=== PATIENT | female | born 1960 | race Caucasian/White ===

== ENCOUNTER → 2023-09-01 08:26 | Outpatient (CLI) | payer MEDICARE, BC, SELFPAY ==
[2023-09-01 09:29] LABS: Add Manual Diff / Slide Review NO; Basophils Absolute Auto 0 /uL (0-100); Basophils Percent Auto 0.5 % (0-2); Eosinophils Absolute Auto 100 /uL (0-450); Eosinophils Percent Auto 1.8 % (2-4); Hematocrit 41.2 % (36-46); Lymphocytes Absolute Auto 1400 /uL (1100-4500); Lymphocytes Percent Auto 29.6 % (25-40); Mean Corpuscular HGB Conc 34.1 % (30-36); Mean Corpuscular Hemoglobin 30.5 PG (26-34); Mean Corpuscular Volume 89.7 fL (80-100); Monocytes Absolute Auto 300 /uL (0-900); Monocytes Percent Auto 6.5 % (3-14); Neutrophils Absolute Auto 2800 /uL (1500-7000); Neutrophils Percent Auto 61.6 % (50-75); Platelet Count 184 X10^3/uL (150-400); White Blood Cell Count 4.6 X10^3/uL (4.5-11.0)
[2023-09-01 09:54] LABS: Creatinine Urine Random 154.4 mg/dL
[2023-09-01 09:57] LABS: Microalbumi Creatinin Ratio Ur 14.2 ug/mg CR (<30); Microalbumin Urine Random 2.2 mg/dL (0-1.6)
[2023-09-01 09:58] LABS: Alanine Aminotransferase 26 IU/L (<35); Albumin 3.8 g/dL (3.5-5.0); Albumin Globulin Ratio 1.4 (1.0-2.8); Alkaline Phosphatase 114 U/L (38-126); Aspartate Aminotransferase 33 IU/L (14-36); BUN Creatinine Ratio 18.3 (6-22); Bilirubin Total 0.7 mg/dL (0.2-1.3); Blood Urea Nitrogen 13 mg/dL (7-17); Calcium 9.5 mg/dL (8.4-10.2); Carbon Dioxide 29 mmol/L (22-32); Chloride 108 mmol/L (98-107); Cholesterol 110 mg/dL (140-199); Estimated Glomerular Filt Rate > 60 mL/min (>60); Globulin 2.8 g/dL (1.7-4.1); Glucose 93 mg/dL (80-110); HDL Cholesterol 57 mg/dL (40-60); HEMOLYSIS < 15 (0-50); LDL Cholesterol Calculated 38 mg/dL (<100); Potassium 4.1 mmol/L (3.4-5.1); Sodium 139 mmol/L (137-145); Total Protein 6.6 g/dL (6.3-8.2); Triglycerides 76 mg/dL (35-150)
[2023-09-01 10:05] LABS: HEMOLYSIS < 15 (0-50); Iron 104 ug/dL (37-170)
[2023-09-01 10:06] LABS: Hemoglobin A1C% w Est Avg Glu 6.5 % (4.0-6.0)
[2023-09-01 10:08] LABS: Vitamin D 25 Hydroxy (D3) 89.6 ng/mL (30.0-100.0)
[2023-09-01 10:20] LABS: Percent Iron Saturation 36 % (15-50); Total Iron Binding Capacity 289 ug/dL (265-497); Transferrin 222 mg/dL (206-381)
[2023-09-01 10:38] LABS: TSH w/ Reflex to FT4 1.82 uIU/mL (0.47-4.68)
== END ==
PROVIDERS: PCP Family Medicine; Referring Provider Family Medicine; Visit Provider Family Medicine
DX: E78.5 Hyperlipidemia, unspecified (principal); E11.9 Type 2 diabetes mellitus without complications; E55.9 Vitamin D deficiency, unspecified; Z98.84 Bariatric surgery status; I87.2 Venous insufficiency (chronic) (peripheral); N64.4 Mastodynia; R53.83 Other fatigue
CPT/HCPCS: 36415; 80053; 80061; 82043; 82306; 82570; 83036; 83540; 83550; 84443; 85025

== ENCOUNTER → 2023-09-09 | Outpatient (CLI) | payer MEDICARE, BC, SELFPAY ==
--- NOTE | 2023-09-09 | DI.MG.S_ITS ---
UNILATERAL LEFT DIGITAL DIAGNOSTIC MAMMOGRAM 3D/2D WITH AUGMENTATION: 09/09/2023 CLINICAL: Diffuse left lateral breast pain. Comparison is made to exams dated: 03/12/2023 mammogram, 02/13/2019 mammogram, 01/01/2017 mammogram - Outside facility, and 03/28/2021 mammogram - outside location. The left breast is heterogeneously dense, which may obscure small masses (category c / 51-75% glandular tissue). No significant masses, calcifications, or other findings are seen in the breast. IMPRESSION: INCOMPLETE: NEEDS ADDITIONAL IMAGING EVALUATION There is no mammographic abnormality seen in the left breast to correspond with the pain, however, targeted ultrasound of the left breast is recommended and will be performed immediately following this exam. Based on the Tyrer Cuzick model (a risk assessment model) the patient's lifetime risk is 7.0% and her 10 year risk is 3.4%. According to the ACR, ACS, and NCCN guidelines, an annual breast MRI exam along with mammogram is recommended if the patient's lifetime risk is 20% or greater. This exam was interpreted at Station ID: [id number]. NOTE: For mammograms, a report in lay terms will be sent to the patient. Approximately 15% of breast malignancies will not be visualized mammographically. In the management of a palpable breast mass, a negative mammogram must not discourage biopsy of a clinically suspicious lesion. Electronically Signed By: Mery Puente M.D. lk/:09/16/2023 13:52:25 ACR BI-RADS Category 0: Incomplete 3340F
== END ==
LOC: MAMMO 10:23
PROVIDERS: PCP Family Medicine; Referring Provider Family Medicine; Visit Provider Family Medicine
DX: R92.2 Inconclusive mammogram (principal); N64.4 Mastodynia; R92.332 Mammographic heterogeneous density, left breast
CPT/HCPCS: 77065; G0279

== ENCOUNTER → 2023-09-16 12:50 | Outpatient (CLI) | payer MEDICARE, BC, SELFPAY ==
--- NOTE | 2023-09-16 12:53 | DI.US.S_ITS ---
LIMITED ULTRASOUND OF LEFT BREAST: 09/16/2023 CLINICAL: Focal left breast pain. No prior exams were available for comparison. Color flow and real-time ultrasound of the left breast 3-6 o'clock region were performed on the areas of interest. Carrillo scale images of the real-time examination were reviewed. There is a benign simple cyst in the left breast at 5 o'clock anterior depth. This simple cyst is anechoic. This correlates as an incidental finding. IMPRESSION: BENIGN There is no sonographic evidence of malignancy. The simple cyst in the left breast is benign. There is no mammographic or sonographic abnormality seen in the left breast to correspond with the pain, however, clinical followup is recommended. Return to annual mammogram screening schedule is recommended. This exam was interpreted at Station ID: [id number]. Electronically Signed By: Mery rico/:09/16/2023 13:56:25 letter sent: Clinical Evaluation Ultrasound BI-RADS: 2 Benign
== END ==
PROVIDERS: PCP Family Medicine; Referring Provider Family Medicine; Visit Provider Family Medicine
DX: N64.4 Mastodynia (principal); N60.02 Solitary cyst of left breast
CPT/HCPCS: 76642

== ENCOUNTER → 2023-12-01 13:28 | Outpatient (CLI) | payer MEDICARE, BC, SELFPAY ==
--- NOTE | 2023-12-01 13:30 | DI.RAD.S_ITS ---
PROCEDURE: XR RIBS LT MIN 3V W CXR1V INDICATIONS: Left chest wall pain TECHNIQUE: 3 views of the ribs were acquired, along with a single view chest. COMPARISON: None. FINDINGS: Surgical changes and devices: Left abdominal surgical clips.. Bones and chest wall: No fractures or dislocations. No suspicious bony lesions. Overlying soft tissues appear unremarkable. Lungs and pleura: No pleural effusions or pneumothorax. Lungs appear clear. Mediastinum: Mediastinal contours appear normal. Heart size is normal. IMPRESSION: No displaced rib fracture or pneumothorax. Dictated by: Mega Bhardwaj M.D. on 12/01/2023 at 16:44 Approved by: Mega Bhardwaj M.D. on 12/01/2023 at 16:45
== END ==
PROVIDERS: PCP Family Medicine; Referring Provider Surgery; Visit Provider Surgery
DX: R07.89 Other chest pain (principal)
CPT/HCPCS: 71101

== ENCOUNTER → 2023-12-11 10:02 | Outpatient (CLI) | payer MEDICARE, BC, SELFPAY ==
--- NOTE | 2023-12-11 10:07 | DI.CT.S_ITS ---
PROCEDURE: CT CHEST WO CON INDICATIONS: left sided chest wall pain TECHNIQUE: Noncontrast 5 mm thick sections acquired from the pulmonary apices to the posterior costophrenic angles. 1 mm lung window, 5 mm thick coronal and sagittal and 7 mm axial MIP reformats were then acquired. For radiation dose reduction, the following was used: automated exposure control, adjustment of mA and/or kV according to patient size. COMPARISON: [facility], CR, XR RIBS LT MIN 3V W CXR1V, 12/01/2023, 13:36. FINDINGS: Image quality: Diagnostic. Respiratory motion in the bilateral lower lung stephenson limits evaluation. Lower Neck: No enlarged lymph nodes. Thyroid: No thyroid nodules which require sonographic follow up, per consensus guidelines. Axillae: No enlarged lymph nodes. Chest Wall: Bilateral breast implants. Bones: No acute or healing fracture, notably of the ribs. No aggressive appearing lytic or blastic osseous lesion. Minimal degenerative changes of the thoracic spine.. Lungs and Pleura: No pneumothorax or pleural effusions. Evaluation of the bilateral lower lobes is limited secondary to motion/atelectasis. Within these limitations, no suspicious pulmonary nodule or consolidation. Heart: Heart size is normal. No pericardial effusion. Thoracic Vessels: The aorta and pulmonary arteries demonstrate normal size. Mediastinum and Merle: No enlarged lymph nodes. Esophagus: No wall thickening. No hiatal hernia. Upper Abdomen: Postsurgical changes of gastric bypass. IMPRESSION: 1. Evaluation of the bilateral lower lobes is limited secondary to respiratory motion/atelectasis. Within these limitations, no suspicious pulmonary nodule or consolidation. 2. No CT findings to explain patient's left-sided chest pain. Specifically, no pneumothorax, pleural effusion or rib fracture. Dictated by: uRth Chaparro M.D. on 12/11/2023 at 19:25 Approved by: Ruth Chaparro M.D. on 12/11/2023 at 19:31
== END ==
PROVIDERS: PCP Family Medicine; Referring Provider Surgery; Visit Provider Surgery
DX: R07.89 Other chest pain (principal)
CPT/HCPCS: 71250

== ENCOUNTER → 2024-02-22 13:51 | Outpatient (CLI) | payer MEDICARE, BC, SELFPAY ==
--- NOTE | 2024-02-22 13:52 | DI.US.S_ITS ---
LIMITED ULTRASOUND OF LEFT BREAST: 02/22/2024 CLINICAL: Pt here for aspiration of simple 1.0 cm cyst. Comparison is made to exams dated: 09/16/2023 ultrasound, 09/09/2023 mammogram - [facility], and 03/12/2023 mammogram - Outside facility. Color flow and real-time ultrasound of the left breast 5 o'clock region were performed. Carrillo scale images of the real-time examination were reviewed. There is a benign 0.4 cm x 0.3 cm x 0.2 cm simple cyst in the left breast at 5 o'clock anterior depth 7 cm from the nipple. This simple cyst is anechoic. This abnormality is decreased in size. IMPRESSION: BENIGN There is no sonographic evidence of malignancy. Cyst aspiration was not preformed. Benign left breast cyst measuring 0.4 cm is decreased in size. A 1 year screening mammogram is recommended. 09/16/2024 This exam was interpreted at Station ID: [id number]. Electronically Signed By: Reyes Wilson M.D. [facility] [place]:02/23/2024 13:03:16 letter sent: Normal Exam Ultrasound BI-RADS: 2 Benign
== END ==
LOC: US 13:52
PROVIDERS: PCP Family Medicine; Referring Provider Surgery; Visit Provider Surgery
DX: N64.4 Mastodynia (principal); N60.02 Solitary cyst of left breast
CPT/HCPCS: 76642

== ENCOUNTER → 2024-02-29 08:12 | Outpatient (CLI) | payer MEDICARE, BC, SELFPAY ==
[2024-03-01 08:11] LABS: Calcium 9.5 mg/dL (8.7-10.3); Parathyroid Hormone, Intact 53 pg/mL (15-65)
== END ==
LOC: LAB 08:13
PROVIDERS: PCP Family Medicine; Referring Provider Family Medicine; Visit Provider Family Medicine
DX: E11.9 Type 2 diabetes mellitus without complications (principal); R53.83 Other fatigue; E21.3 Hyperparathyroidism, unspecified
CPT/HCPCS: 36415; 82310; 83036; 83970

== ENCOUNTER → 2024-03-26 12:39 | Outpatient (CLI) | payer MEDICARE, BC, SELFPAY ==
--- NOTE | 2024-03-26 12:42 | DI.RAD.S_ITS ---
PROCEDURE: XR THORACIC SPINE 3V INDICATIONS: RIB PAIN TECHNIQUE: 3 views of the thoracic spine were acquired. COMPARISON: None. FINDINGS: Bones: No fractures or dislocations. No suspicious bony lesions. 12 pairs of ribs are noted, and appear intact where visualized. Soft tissues: No paravertebral stripe thickening. Surgical clips project over the left upper abdomen. IMPRESSION: Thoracic spine without acute fracture or traumatic malalignment. Dictated by: Yomi Ahumada M.D. on 03/26/2024 at 15:41 Approved by: Yomi Ahumada M.D. on 03/26/2024 at 15:53
== END ==
PROVIDERS: Family Provider Family Medicine; PCP Family Medicine; Referring Provider Physical Medicine & Rehabilitation; Visit Provider Physical Medicine & Rehabilitation
DX: R07.89 Other chest pain (principal); M54.6 Pain in thoracic spine
CPT/HCPCS: 72072

== ENCOUNTER → 2024-04-09 08:16 | Outpatient (CLI) | payer MEDICARE, BC, SELFPAY ==
--- NOTE | 2024-04-09 08:56 | DI.MRI.S_ITS ---
PROCEDURE: MR THORACIC SPINE WO CON INDICATIONS: left T9 thoracic radiculopathy TECHNIQUE: Noncontrast sagittal T1 spine echo and T2 fast spin echo, sagittal STIR, and T2 fast spin echo through the thoracic spine. COMPARISON: [facility], CR, XR THORACIC SPINE 3V, 03/26/2024, 12:46. FINDINGS: Image quality: Excellent. Alignment and Curvature: There is normal bony alignment. Bone Marrow: Marrow is of normal overall signal. No acute vertebral body compression fractures. Increased T1 and T2 signal is present at L2 most consistent with hemangioma. Spinal Cord: Visualized spinal cord is normal in size and signal. Paraspinous Soft Tissues: No paravertebral masses. Miscellaneous: On axial images, central canal appears widely patent at all scanned levels. Minimal disc bulge at T4-5, T5-6, T6-7, L1-2. Mild right foraminal narrowing at T8-9, minimal T9-10. IMPRESSION: Minimal to mild right foraminal narrowing at T8-9, T9-10. Minimal scattered disc bulges. Dictated by: Aletha White M.D. on 04/09/2024 at 14:40 Approved by: Aletha White M.D. on 04/09/2024 at 14:52
== END ==
PROVIDERS: Family Provider Family Medicine; PCP Family Medicine; Referring Provider Physical Medicine & Rehabilitation; Visit Provider Physical Medicine & Rehabilitation
DX: M47.24 Other spondylosis with radiculopathy, thoracic region (principal)
CPT/HCPCS: 72146

== ENCOUNTER → 2024-04-28 09:24 | Outpatient (CLI) | payer MEDICARE, BC, SELFPAY ==
--- NOTE | 2024-04-28 09:26 | DI.MG.S_ITS ---
BILATERAL DIGITAL SCREENING MAMMOGRAM 3D/2D WITH CAD WITH AUGMENTATION: 04/28/2024 CLINICAL: Routine screening. Comparison is made to exams dated: 03/12/2023 mammogram - Outside facility, 03/28/2021 mammogram - outside location, and 02/13/2019 mammogram - Outside facility. The breasts are heterogeneously dense, which may obscure small masses (category c / 51-75% glandular tissue). Current study was also evaluated with a Computer Aided Detection (CAD) system. Bilateral breast implants are present. There are benign calcifications in both breasts. No significant masses, calcifications, or other findings are seen in either breast. There has been no significant interval change. IMPRESSION: BENIGN There is no mammographic evidence of malignancy. A 1 year screening mammogram is recommended. Future imaging is recommended as follows: 09/16/2024 screening mammogram. Based on the Tyrer Cuzick model (a risk assessment model) the patient's lifetime risk is 7.0% and her 10 year risk is 3.4%. According to the ACR, ACS, and NCCN guidelines, an annual breast MRI exam along with mammogram is recommended if the patient's lifetime risk is 20% or greater. This exam was interpreted at Station ID: [id number]. NOTE: For mammograms, a report in lay terms will be sent to the patient. Approximately 15% of breast malignancies will not be visualized mammographically. In the management of a palpable breast mass, a negative mammogram must not discourage biopsy of a clinically suspicious lesion. Electronically Signed By: Oscar yee/ed:04/30/2024 13:29:58 letter sent: Normal Exam ACR BI-RADS Category 2: Benign
== END ==
PROVIDERS: Family Provider Family Medicine; PCP Family Medicine; Referring Provider Family Medicine; Visit Provider Family Medicine
DX: Z12.31 Encounter for screening mammogram for malignant neoplasm of breast (principal); R92.333 Mammographic heterogeneous density, bilateral breasts
CPT/HCPCS: 77063; 77067

== ENCOUNTER → 2024-05-09 09:11 | Outpatient (CLI) | payer MEDICARE, BC, SELFPAY ==
--- NOTE | 2024-05-09 09:21 | DI.CT.S_ITS ---
PROCEDURE: CT SINUS SCREEN WO CON INDICATIONS: CHRONIC PANSINUSITIS / FACIAL PAIN TECHNIQUE: Noncontrast 3.0 mm axial images acquired from the frontal sinuses to the mid-sella, with coronal and sagittal reformats. For radiation dose reduction, the following was used: automated exposure control, adjustment of mA and/or kV according to patient size. COMPARISON: None. FINDINGS: Image quality: Excellent. Maxillary Sinuses: No bony remodeling or destruction. Sinuses are clear. Ethmoid Air Cells: No bony remodeling or destruction. Sinuses are clear. Sphenoid Sinuses: No bony remodeling or destruction. Sinuses are clear. Frontal Sinuses: No bony remodeling or destruction. Sinuses are clear. Ostiomeatal Complexes: The ostiomeatal complexes are patent, yet they are constitutionally narrowed, with bilateral Jewels cells. Miscellaneous: Visualized intra-orbital contents are normal. Bilateral tracey bullosa can be seen. There is minimal leftward nasal septal deviation. Incidental note is made of hyperostosis frontalis. This is not considered to be pathologic in a woman of this age. IMPRESSION: No significant active paranasal sinus disease can be seen. The ostiomeatal complexes are patent, yet they are constitutionally narrowed, with bilateral Jewels cells. Dictated by: Lenny Orozco M.D. on 05/09/2024 at 9:30 Approved by: Lenny Orozco M.D. on 05/09/2024 at 9:31
== END ==
PROVIDERS: Family Provider Family Medicine; PCP Family Medicine; Referring Provider Otolaryngology; Visit Provider Otolaryngology
DX: J32.4 Chronic pansinusitis (principal); R51.9 Headache, unspecified
CPT/HCPCS: 70486

== ENCOUNTER 2024-05-15 11:30 | Outpatient (RCR) | payer MEDICARE, BC, SELFPAY ==
--- NOTE | 2024-03-29 17:10 | PT.OIE ---
Current Diagnoses Pain in thoracic spine (03/29/24) Past Medical History (Last Updated 03/29/24 @ 09:24 by Marical Wallace DO) Allergies (~2022) Bronchiectasis Cataracts, bilateral (~2018) COPD (chronic obstructive pulmonary disease) (~2022) Eczema of scalp GERD (gastroesophageal reflux disease) (~2009) HLD (hyperlipidemia) Insomnia Left-sided chest wall pain Obesity Pneumonia Retinal tear Simple cyst of left breast Sleep apnea Thoracic radiculopathy due to degenerative joint disease of spine Type 2 diabetes mellitus Venous insufficiency Vitamin D deficiency Past Surgical History (Last Reviewed 03/29/24 @ 09:19 by Marcial Wallace DO) Anesthesia History of bariatric surgery History of breast augmentation (~02/2010) History of endoscopy (~02/2010) History of eye surgery (~02/2023) History of hysteroscopy (~03/2003) History of kidney surgery History of vascular surgery (~08/2004) Visit Care Team Role Provider Type Cornelia Welch MD Attending Provider Physician Family Provider Primary Care Provider Referring Provider Specialty: [facility] [employer] OPER[employer] Address: [address] [place] [address] Email: [email or web address] Physical Therapy Initial Evaluation PT-OP-A Visit Information Start: 03/29/24 12:36 Freq: Status: Active Protocol: Document 03/29/24 14:34 LRN (Rec: 03/29/24 17:09 REID [id number]) Out-Patient Physical Therapy Visit Information Visit Information Visit Type Initial Evaluation Visit Start Time 14:34 Visit Stop Time 15:23 Visit Number 1 Evaluation Information Evaluation Date 03/29/24 Precautions Precautions Bariatric, kidney, vascular and breast implant surgery. PT-OP-B Current Condition Start: 03/29/24 12:36 Freq: Status: Active Protocol: Document 03/29/24 14:34 LRN (Rec: 03/29/24 17:09 LRN [id number]) Current Condition History of Current Condition Onset Date 06/25 Current Complaints L sided posterior mid-back radiating around trunk to under bra. History of Current Condition L sided (Thoracic) chest wall pain s/p fall 06/25 when she missed 2 steps coming out of her garage (pt was packing for move to [employer], after retiring), falling on her L side and 2 wks later starting getting pain in posterior T/S that radiated to front under the L breast. Saw Dr. Wallace today and was told she has a pinched nerve and is planning on having an MRI to confirm. Pain is intermittent during the day when being active. States she had PT 3 yrs ago for L LBP with resolution of pain and was told she had a leg that was 1 longer than the other. Prior Treatments and Tests X-ray of thoracic spine: No fractures or dislocations. No suspicious bony lesions. 12 pairs of ribs are noted, and appear intact where visualized . Thoracic radiculopathy involving the left T9 disc. Future Testing and Treatments Planned MRI of the thoracic spine planned. Treatment Goals Patient/Caregiver Goals Pt has posterior thoracic pain that radiates around the front under the L breast implant (piercing pain) with walking, cleaning (wiping/ mopping/vacumming), rated 7-8/ 10. Raising the L arm the pain in the back that radiates is eliminated. Pt goal is to: -learn how to transfer to not create pain. -Extend her painfree time to > 30 minutes after getting up in the morning. -Decrease pain 50% to 3-4/10. Personal Factors Other Personal Factors That May Effect Obesity (BMI 30.7) w/history Therapy/Recovery of bariatric surgery with breast implants; Depression, Sleep apnea, DM type 2, COPD, GERD, bronchiectasis, PT-OP-C Subjective Start: 03/29/24 12:36 Freq: Status: Active Protocol: Document 03/29/24 14:34 LRN (Rec: 03/29/24 17:09 LRN [id number]) Patient Questionnaires Oswestry Low Back Index Oswestry Score 38 Oswestry Impairment 20 to 39% Impaired (Score 20- 39) OP-PT Pain Assessment Pain Assessment Grid Paper Pain Assessment Grid Completed Yes Location Under L breast Pain Location Details Underneath L breast, more laterally Intensity 8 Scale Used Numeric (0 - 10) Description Sharp,Shooting,Stabbing Other Pain Alleviating Factors Lifting L arm Posterior mid back/front chest Pain Location Details T4-6 costovertebral joint Intensity 8 Scale Used Numeric (0 - 10) Description Sharp,Shooting,Stabbing Other Pain Alleviating Factors Lifting L arm PT-OP-J Posture/Palpation/Skin Start: 03/29/24 12:36 Freq: Status: Active Protocol: Document 03/29/24 14:34 LRN (Rec: 03/29/24 17:09 LRN [id number]) Posture Evaluation Position Standing Head/C-Spine Posture Side Bent Right L-Spine Posture Shifted Left Shoulder Posture (L) Elevated Scapula Posture (R) Rotated Up Pelvis Posture Anteriorly Tilted Knee Posture (L) Genu Varus,(R) Genu Varus Ankle/Foot Posture (L) Supinated,(R) Supinated,(L ) Calcaneal Inversion,(R) Calcaneal Inversion Comments Posture Comments Dowagers hump, flat T/S, T6/T7 rib, Palpation Assessment Location T6-7 Palpation Location Midly tender L intercostal T5-6 Palpation Location Tender at L intercostal T4-5 Palpation Location Mildly tender L intercostal T4-6 Palpation Location PA mob Palpation Findings Tenderness L T6 & T7 Costovertebral jt Palpation Details Pain radiating around the L lateral trunk PT-OP-K Range of Motion Start: 03/29/24 12:36 Freq: Status: Active Protocol: Document 03/29/24 14:34 LRN (Rec: 03/29/24 17:09 LRN [id number]) Cervical Spine Range of Motion Cervical Spine Active Degrees Testing Position Sitting Flexion 50 Extension 90 Rotation Left 55 Rotation Right 60 Lateral Flexion Left 18 Lateral Flexion Right 35 ROM Limitations Soft Tissue Tightness Lumbar Spine Range of Motion Lumbar Spine Active Degrees Testing Position Standing Flexion 65 Extension 17 Rotation Left 35 Rotation Right 20 Lateral Flexion Left 15 Lateral Flexion Right 12 ROM Limitations Soft Tissue Tightness PT-OP-M Strength Start: 03/29/24 12:36 Freq: Status: Active Protocol: Document 03/29/24 14:34 LRN (Rec: 03/29/24 17:09 LRN [id number]) Cervical Spine Strength Cervical Spine Manual Muscle Testing Rotation Right 4 Good Lateral Flexion Right (C3) 4 Good Comments Strength is 5/5 except as indicated above. Shoulder Strength Shoulder Manual Muscle Testing Right Flexion 3 Fair Comments Strength is 5/5 except as indicated above. Left Flexion 3 Fair Comments Strength is 5/5 except as indicated above PT-OP-Q Treatments Start: 03/29/24 12:36 Freq: Status: Active Protocol: Document 03/29/24 14:34 LRN (Rec: 03/29/24 17:09 LRN [id number]) Therapeutic Exercises Supine Exercises Child's Pose Reps/Minutes 1' Comments No pain created Wag the Tail Side bilateral Reps/Minutes 2x Comments No pain created Cat/Camel Reps/Minutes 2x Comments No pain created Self-Care/Home Management Treatment Education Other Education Discussed results of evaluation, goals, treatment, and plan of care (POC) with pt , attendance/cx/dns policy; pt agreeable to evaluation, goals, treatment, attendance/ cx/dns policy and POC. Activities Self-Care/Home Management Activities I/S pt in HEP: Trunk flex/ext /R rot/SB AROM stretch. PT-OP-T Assessment and Plan Start: 03/29/24 12:36 Freq: Status: Active Protocol: Document 03/29/24 14:34 LRN (Rec: 03/29/24 17:09 [facility] [id number]) Physical Therapy Assessment Rehab Potential Rehabilitation Potential Good Evaluation Complexity Number of Personal Factors/Comorbidities 3 or More Clinical Presentation at Evaluation Evolving Impairments Impairments Activity Tolerance,Functional Activities,Pain,Posture,ROM, Soft Tissue Mobility,Strength, Transfers Goals Three Impairment Pain during the day with all activities, no pain at night. 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 LTG Duration 05/18/24 Two Impairment Thoracic pain rated 7-8/10 Short Term Goal (STG) Decrease pain 50% to 3-4/10 with lessening of pain onset with cleaning activities STG Duration 04/20/24 [facility] Goal (LTG) Decrease pain 75% to 1-2/10 with lessening of pain onset with ADLs. LTG Duration 05/18/24 One Impairment Pt lacks appropriate self care HEP. Short Term Goal (STG) Pt will be educated in log roll transfers, proper body mechanics for ADLs, proper sitting/standing posture. STG Duration 04/20/24 [facility] Goal (LTG) Pt will be independent in an effective self care HEP for shoulder/trunk strengthening and mobility ex's. LTG Duration 05/18/24 Assessment Summary Assessment Pt is a 63 yo female who presents with L trunk pain that orginates in the mid T/S costovertebral joint that radiates around to the front under the L breast implant. The pt's pain starts 30 minutes after getting up in the morning, and is intermittent through her day. She does not have a pain response typical to costovertebral joint dysfunction, but she may have scar tissue that has formed since her fall that may be causing her pain, although only mild provocation to the joint (through trunk mobility ex's) did not elicit the pain; therefore her pain may be of internal nature such as diabetic truncal neuopathy? Her pain appears primarily present with posterior- anterior mob of thoracic spinous processes of T4-T6 and at CV joints of T4-T6. The pt also is finding reliev from her pain with raising of her L arm. The pt will benefit from skilled physical therapy to improve trunk mobility/ strength and ROM, manual therapy for soft tissue & scar tissue mobilization, neuro re -ed and self care ex's for core stabilization, therapeutic activities and exercise and education onto a HEP; modalities to promote tissue mobility and manage pain. Physical Therapy Plan Frequency and Duration Frequency of Treatment 2x/Week Duration of treatment (weeks) 7 Plan of Care Start Date 03/29/24 Plan of Care End Date 05/18/24 Therapeutic Interventions Therapeutic Interventions Home Exercise Program,Joint Mobilizations,Manual Therapy, Neuromuscular Re-education, Self-Care/Home Management,Soft Tissue Mobilization, Therapeutic Activities, Therapeutic Exercises Modalities Electric Stimulation,Hot Packs ,Ultrasound Next Visit Focus/Plan Next Note Type Treatment Note Next Visit Plan Check pelvis/hip posturing ( check leg length descrepancy), shoulder AROM, Apley's Scratch Test, & scar mob under L breast. Assess gross sensation & functional UE mobility. Start with MH while doing T/S mobility ex's ( rotation), and review/issue HEP: flex, SB. POC: ROM, stabilization and strengthening, activity tolerance, manual therapy, JMT , neuro re-education, ther act , ther ex, modalities as needed for pain, pt education.
--- NOTE | 2024-04-05 14:11 | PT.OTN ---
Current Diagnoses Pain in thoracic spine (04/05/24) Physical Therapy Treatment Note PT-OP-A Visit Information Start: 03/29/24 12:36 Freq: Status: Active Protocol: Document 04/05/24 12:59 LRN (Rec: 04/05/24 13:50 LRN [id number]) Out-Patient Physical Therapy Visit Information Visit Information Visit Type Treatment Note Visit Start Time 12:59 Visit Stop Time 13:43 Visit Number 2 Evaluation Information Evaluation Date 03/29/24 Precautions Precautions Bariatric, kidney, vascular and breast implant surgery. PT-OP-B Current Condition Start: 03/29/24 12:36 Freq: Status: Active Protocol: Document 03/29/24 14:34 LRN (Rec: 03/29/24 17:09 LRN [id number]) Current Condition History of Current Condition Onset Date 06/25 Current Complaints L sided posterior mid-back radiating around trunk to under bra. History of Current Condition L sided (Thoracic) chest wall pain s/p fall 06/25 when she missed 2 steps coming out of her garage (pt was packing for move to [place], after retiring), falling on her L side and 2 wks later starting getting pain in posterior T/S that radiated to front under the L breast. Saw Dr. Wallace today and was told she has a pinched nerve and is planning on having an MRI to confirm. Pain is intermittent during the day when being active. States she had PT 3 yrs ago for L LBP with resolution of pain and was told she had a leg that was 1 longer than the other. Prior Treatments and Tests X-ray of thoracic spine: No fractures or dislocations. No suspicious bony lesions. 12 pairs of ribs are noted, and appear intact where visualized . Thoracic radiculopathy involving the left T9 disc. Future Testing and Treatments Planned MRI of the thoracic spine planned. Treatment Goals Patient/Caregiver Goals Pt has posterior thoracic pain that radiates around the front under the L breast implant (piercing pain) with walking, cleaning (wiping/ mopping/vacumming), rated 7-8/ 10. Raising the L arm the pain in the back that radiates is eliminated. Pt goal is to: -learn how to transfer to not create pain. -Extend her painfree time to > 30 minutes after getting up in the morning. -Decrease pain 50% to 3-4/10. Personal Factors Other Personal Factors That May Effect Obesity (BMI 30.7) w/history Therapy/Recovery of bariatric surgery with breast implants; Depression, Sleep apnea, DM type 2, COPD, GERD, bronchiectasis, PT-OP-C Subjective Start: 03/29/24 12:36 Freq: Status: Active Protocol: Document 04/05/24 12:59 LRN (Rec: 04/05/24 13:50 LRN [id number]) OP-PT Subjective Patient Comments Patient Comments Walking uphill back hurts. PT-OP-J Posture/Palpation/Skin Start: 03/29/24 12:36 Freq: Status: Active Protocol: Document 03/29/24 14:34 LRN (Rec: 03/29/24 17:09 LRN [id number]) Posture Evaluation Position Standing Head/C-Spine Posture Side Bent Right L-Spine Posture Shifted Left Shoulder Posture (L) Elevated Scapula Posture (R) Rotated Up Pelvis Posture Anteriorly Tilted Knee Posture (L) Genu Varus,(R) Genu Varus Ankle/Foot Posture (L) Supinated,(R) Supinated,(L ) Calcaneal Inversion,(R) Calcaneal Inversion Comments Posture Comments Dowagers hump, flat T/S, T6/T7 rib, Palpation Assessment Location T6-7 Palpation Location Midly tender L intercostal T5-6 Palpation Location Tender at L intercostal T4-5 Palpation Location Mildly tender L intercostal T4-6 Palpation Location PA mob Palpation Findings Tenderness L T6 & T7 Costovertebral jt Palpation Details Pain radiating around the L lateral trunk PT-OP-K Range of Motion Start: 03/29/24 12:36 Freq: Status: Active Protocol: Document 04/05/24 12:59 LRN (Rec: 04/05/24 13:50 LRN [id number]) Shoulder Goniometric Range of Motion Shoulder Right Active Testing Position Supine Flexion 162 Abduction 170 External Rotation at 90 degrees 95 Abduction Internal Rotation 78 Left Active Testing Position Supine Flexion 175 Abduction 180 External Rotation at 90 degrees 75 Abduction Internal Rotation 73 PT-OP-M Strength Start: 03/29/24 12:36 Freq: Status: Active Protocol: Document 03/29/24 14:34 LRN (Rec: 03/29/24 17:09 LRN [id number]) Cervical Spine Strength Cervical Spine Manual Muscle Testing Rotation Right 4 Good Lateral Flexion Right (C3) 4 Good Comments Strength is 5/5 except as indicated above. Shoulder Strength Shoulder Manual Muscle Testing Right Flexion 3 Fair Comments Strength is 5/5 except as indicated above. Left Flexion 3 Fair Comments Strength is 5/5 except as indicated above PT-OP-Q Treatments Start: 03/29/24 12:36 Freq: Status: Active Protocol: Document 04/05/24 12:59 LRN (Rec: 04/05/24 13:50 LRN [id number]) Therapeutic Exercises Supine Exercises Shoulder stretch ER Side left Reps/Minutes 30 SH x 3 Comments Passive stretch by PT before pt passive stretching Shoulder stretch flex Supine Exercise Name Assisted Shoulder flex stretch Side bilateral Reps/Minutes 4' TA tightening Supine Exercise Name After pelvic correction, TA tightening Reps/Minutes 10 SH (3 breaths) x 8' Comments Cued to pull belly button in. Sitting Exercises Postural awareness trng Sitting Exercise Name Correction to Trunk shift L, and trunk R SB Right, neck shift R. Reps/Minutes 6' Standing Exercises Wall trunk shift correction Standing Exercise Name L shoulder/arm on wall, shifting pelvis to L to wall Reps/Minutes 60 SH x 2 Comments Extra time needed to determine stretch position and joshua position. Manual Therapy Treatment Joint Mobilizations R SIJ Joint R SIJ Direction Correcting outflare Body Position Supine Reps/Duration 11' Comments Corrected outflare Self-Care/Home Management Treatment Activities Self-Care/Home Management Activities Issued & reviewed HEP: Trunk lat shift to L, Neftali shoulder flex, L shoulder ER stretch. PT-OP-T Assessment and Plan Start: 03/29/24 12:36 Freq: Status: Active Protocol: Document 04/05/24 12:59 LRN (Rec: 04/05/24 13:50 LRN [id number]) Physical Therapy Assessment Goals Three Impairment Pain during the day with all activities, no pain at night. Fpc Goal (LTG) Pt will be able to get up and be painfree for the first 1-2 hrs before onset of discomfort and will be able to manage her pain with exercise to keep her pain at a tolerable level . LTG Duration 05/18/24 Two Impairment Thoracic pain rated 7-8/10 Short Term Goal (STG) Decrease pain 50% to 3-4/10 with lessening of pain onset with cleaning activities STG Duration 04/20/24 Fpc Goal (LTG) Decrease pain 75% to 1-2/10 with lessening of pain onset with ADLs. LTG Duration 05/18/24 One Impairment Pt lacks appropriate self care HEP. Short Term Goal (STG) Pt will be educated in log roll transfers, proper body mechanics for ADLs, proper sitting/standing posture. STG Duration 04/20/24 Fpc Goal (LTG) Pt will be independent in an effective self care HEP for shoulder/trunk strengthening and mobility ex's. 04/05/24: HEP: Trunk lat shift to L, Neftali shoulder flex, L shoulder ER stretch. LTG Duration 05/18/24 progressed 04/05/24 Assessment Summary Assessment 63 yo female with L trunk pain that orginates in the mid T/S costovertebral joint (CVJ) that radiates around to the front under the L breast implant. She has pain typical of CVJ dysfunction, scar tissue may also be a hinderance; pain may also be of internal nature such as diabetic truncal neuopathy?. Pain is w/PA mob of T/S processes T4-T6 and CV joints of T4-T6. Today, pt demonstrates equal leg lengths but in standing her L hip is low. She was able to perform todays ex's w/o c/o pain, but not able to on her own correct her postural dysfunctions (L trunk shift, trunk & head tilt R). Pt not able to recall HEP. Physical Therapy Plan Frequency and Duration Frequency of Treatment 2x/Week Duration of treatment (weeks) 7 Plan of Care Start Date 03/29/24 Plan of Care End Date 05/18/24 Next Visit Focus/Plan Next Note Type Treatment Note Next Visit Plan Assess gross sensation & functional UE mobility. Review/issue initial HEP (HEP: trunk flex, neck SB.) instructed and issue handouts for exercise. Check Apley's Scratch Test, & scar mob under L breast. Can start with MH while doing T/S mobility ex's (rotation). Review proper sitting sitting weird Manual: Scar mob at L breast scar. Educated in log roll transfers , proper body mechanics for ADLs, standing posture. POC: ROM, stabilization and strengthening, activity tolerance, manual therapy, JMT , neuro re-education, ther act , ther ex, modalities as needed for pain, pt education.
--- NOTE | 2024-04-12 15:58 | PT.OTN ---
Current Diagnoses Pain in thoracic spine (04/12/24) Physical Therapy Treatment Note PT-OP-A Visit Information Start: 03/29/24 12:36 Freq: Status: Active Protocol: Document 04/12/24 13:01 LRN (Rec: 04/12/24 13:50 LRN [id number]) Out-Patient Physical Therapy Visit Information Visit Information Visit Type Treatment Note Visit Start Time 13:02 Visit Stop Time 13:47 Visit Number 3 Evaluation Information Evaluation Date 03/29/24 Precautions Precautions Bariatric, kidney, vascular and breast implant surgery, diabetes type II, bilateral venous insufficiecy - 2002. PT-OP-B Current Condition Start: 03/29/24 12:36 Freq: Status: Active Protocol: Document 03/29/24 14:34 LRN (Rec: 03/29/24 17:09 LRN [id number]) Current Condition History of Current Condition Onset Date 06/25 Current Complaints L sided posterior mid-back radiating around trunk to under bra. History of Current Condition L sided (Thoracic) chest wall pain s/p fall 06/25 when she missed 2 steps coming out of her garage (pt was packing for move to [place], after retiring), falling on her L side and 2 wks later starting getting pain in posterior T/S that radiated to front under the L breast. Saw Dr. Wallace today and was told she has a pinched nerve and is planning on having an MRI to confirm. Pain is intermittent during the day when being active. States she had PT 3 yrs ago for L LBP with resolution of pain and was told she had a leg that was 1 longer than the other. Prior Treatments and Tests X-ray of thoracic spine: No fractures or dislocations. No suspicious bony lesions. 12 pairs of ribs are noted, and appear intact where visualized . Thoracic radiculopathy involving the left T9 disc. Future Testing and Treatments Planned MRI of the thoracic spine planned. Treatment Goals Patient/Caregiver Goals Pt has posterior thoracic pain that radiates around the front under the L breast implant (piercing pain) with walking, cleaning (wiping/ mopping/vacumming), rated 7-8/ 10. Raising the L arm the pain in the back that radiates is eliminated. Pt goal is to: -learn how to transfer to not create pain. -Extend her painfree time to > 30 minutes after getting up in the morning. -Decrease pain 50% to 3-4/10. Personal Factors Other Personal Factors That May Effect Obesity (BMI 30.7) w/history Therapy/Recovery of bariatric surgery with breast implants; Depression, Sleep apnea, DM type 2, COPD, GERD, bronchiectasis, PT-OP-C Subjective Start: 03/29/24 12:36 Freq: Status: Active Protocol: Document 04/12/24 13:01 LRN (Rec: 04/12/24 13:50 LRN [id number]) OP-PT Subjective Patient Comments Patient Comments MRI done 04/09/24. LB comes and goes, taking Gabapentin at night. Pain in upper back still 02/10. PT-OP-J Posture/Palpation/Skin Start: 03/29/24 12:36 Freq: Status: Active Protocol: Document 03/29/24 14:34 LRN (Rec: 03/29/24 17:09 LRN [id number]) Posture Evaluation Position Standing Head/C-Spine Posture Side Bent Right L-Spine Posture Shifted Left Shoulder Posture (L) Elevated Scapula Posture (R) Rotated Up Pelvis Posture Anteriorly Tilted Knee Posture (L) Genu Varus,(R) Genu Varus Ankle/Foot Posture (L) Supinated,(R) Supinated,(L ) Calcaneal Inversion,(R) Calcaneal Inversion Comments Posture Comments Dowagers hump, flat T/S, T6/T7 rib, Palpation Assessment Location T6-7 Palpation Location Midly tender L intercostal T5-6 Palpation Location Tender at L intercostal T4-5 Palpation Location Mildly tender L intercostal T4-6 Palpation Location PA mob Palpation Findings Tenderness L T6 & T7 Costovertebral jt Palpation Details Pain radiating around the L lateral trunk PT-OP-K Range of Motion Start: 03/29/24 12:36 Freq: Status: Active Protocol: Document 04/12/24 13:01 LRN (Rec: 04/12/24 13:50 LRN [id number]) Shoulder Goniometric Range of Motion Shoulder Right Active Testing Position Supine Flexion 170 Abduction 180 External Rotation at 90 degrees 95 Abduction Left Active Testing Position Supine Flexion 165 Abduction 180 External Rotation at 90 degrees 77 Abduction PT-OP-M Strength Start: 03/29/24 12:36 Freq: Status: Active Protocol: Document 03/29/24 14:34 LRN (Rec: 03/29/24 17:09 LRN [id number]) Cervical Spine Strength Cervical Spine Manual Muscle Testing Rotation Right 4 Good Lateral Flexion Right (C3) 4 Good Comments Strength is 5/5 except as indicated above. Shoulder Strength Shoulder Manual Muscle Testing Right Flexion 3 Fair Comments Strength is 5/5 except as indicated above. Left Flexion 3 Fair Comments Strength is 5/5 except as indicated above PT-OP-Q Treatments Start: 03/29/24 12:36 Freq: Status: Active Protocol: Document 04/12/24 13:01 LRN (Rec: 04/12/24 13:50 LRN [id number]) Therapeutic Exercises Supine Exercises Shoulder stretch ER Side left Reps/Minutes 3 breath hold x 10 Comments To start, extra time needed for much v instuctions to perform ex. Shoulder stretch flex Supine Exercise Name Assisted Shoulder flex stretch Side bilateral Equipment Used yellow staff Reps/Minutes 3 breath hold x 10 Comments Extra time needed for much v instuctions to perform ex. Child's Pose Reps/Minutes 3 Breath hold x 5 Comments No pain created Wag the Tail Side bilateral Reps/Minutes 2x Comments No pain created Cat/Camel Reps/Minutes 2x Comments No pain created Sidelying Exercises Open book Side bilateral Reps/Minutes 5x Comments Much trng, phy/v cuing needed to lead w/neck rot, no exces shdr horiz AB Self-Care/Home Management Treatment Activities Self-Care/Home Management Activities Issued & reviewed HEP: R trunk Rot(sit)/SB(stand) stretch, and Open Book. PT-OP-T Assessment and Plan Start: 03/29/24 12:36 Freq: Status: Active Protocol: Document 04/12/24 13:01 LRN (Rec: 04/12/24 13:50 LRN [id number]) Physical Therapy Assessment Goals Three Impairment Pain during the day with all activities, no pain at night. Snf Goal (LTG) Pt will be able to get up and be painfree for the first 1-2 hrs before onset of discomfort and will be able to manage her pain with exercise to keep her pain at a tolerable level . LTG Duration 05/18/24 Two Impairment Thoracic pain rated 7-8/10 Short Term Goal (STG) Decrease pain 50% to 3-4/10 with lessening of pain onset with cleaning activities STG Duration 04/20/24 Snf Goal (LTG) Decrease pain 75% to 1-2/10 with lessening of pain onset with ADLs. LTG Duration 05/18/24 One Impairment Pt lacks appropriate self care HEP. Short Term Goal (STG) Pt will be educated in log roll transfers, proper body mechanics for ADLs, proper sitting/standing posture. STG Duration 04/20/24 Snf Goal (LTG) Pt will be independent in an effective self care HEP for shoulder/trunk strengthening and mobility ex's. 04/05/24: HEP: Trunk lat shift to L, Neftali shoulder flex, L shoulder ER stretch. 04/12/24: HEP: R trunk Rot ( sit) & SB (stand), and Open Book. LTG Duration 05/18/24 progressed 04/12/24 Assessment Summary Assessment 63 yo female with L trunk pain that orginates in the mid T/S costovertebral joint (CVJ), radiating around to the front under the L breast implant. She has pain typical of CVJ dysfunction, scar tissue may also be a hinderance; pain may be of internal nature such as diabetic truncal neuopathy? Pain w/PA mob of T4-T6 spinous processes and T4-T6 CV joints . Today, pt demonstrates improved L shoulder ROM (ER is 77 deg's L, 95 R; flexion is 165 deg's L, 170 deg's R). MRI showed per pt copy of report, min disc bulge between T4-T7 and L1-L2; min>mod foraminal narrowing T8-9, T9- 10. L shoulder tightness with supine AROM. Pt moves slowly through the ex's. Physical Therapy Plan Frequency and Duration Frequency of Treatment 2x/Week Duration of treatment (weeks) 7 Plan of Care Start Date 03/29/24 Plan of Care End Date 05/18/24 Next Visit Focus/Plan Next Note Type Treatment Note Next Visit Plan Issue HEP: trunk flex/ext AROM and 4pt LB stretches. Assess gross sensation & functional UE mobility. Review/issue initial HEP (HEP: trunk flex, neck SB). Check Apley's Scratch Test, & scar mob under L breast. Can start with MH while doing T/S mobility ex's (rotation). Review proper sitting sitting weird Educated in log roll transfers , proper body mechanics for ADLs, standing posture. Manual: Scar mob at L breast scar. POC: ROM, stabilization and strengthening, activity tolerance, manual therapy, JMT , neuro re-education, ther act , ther ex, modalities as needed for pain, pt education.
--- NOTE | 2024-04-19 11:33 | PT.OTN ---
Current Diagnoses Pain in thoracic spine (04/19/24) Physical Therapy Treatment Note PT-OP-A Visit Information Start: 03/29/24 12:36 Freq: Status: Active Protocol: Document 04/19/24 10:47 SP (Rec: 04/19/24 11:36 SP [id number]) Out-Patient Physical Therapy Visit Information Visit Information Visit Type Treatment Note Visit Start Time 10:47 Visit Stop Time 11:33 Visit Number 4 Number of SCOREKEEPER Visits 1 Evaluation Information Evaluation Date 03/29/24 Precautions Precautions Bariatric, kidney, vascular and breast implant surgery, diabetes type II, bilateral venous insufficiecy - 2002. PT-OP-B Current Condition Start: 03/29/24 12:36 Freq: Status: Active Protocol: Document 03/29/24 14:34 LRN (Rec: 03/29/24 17:09 LRN [id number]) Current Condition History of Current Condition Onset Date 06/25 Current Complaints L sided posterior mid-back radiating around trunk to under bra. History of Current Condition L sided (Thoracic) chest wall pain s/p fall 06/25 when she missed 2 steps coming out of her garage (pt was packing for move to [employer], after retiring), falling on her L side and 2 wks later starting getting pain in posterior T/S that radiated to front under the L breast. Saw Dr. Wallace today and was told she has a pinched nerve and is planning on having an MRI to confirm. Pain is intermittent during the day when being active. States she had PT 3 yrs ago for L LBP with resolution of pain and was told she had a leg that was 1 longer than the other. Prior Treatments and Tests X-ray of thoracic spine: No fractures or dislocations. No suspicious bony lesions. 12 pairs of ribs are noted, and appear intact where visualized . Thoracic radiculopathy involving the left T9 disc. Future Testing and Treatments Planned MRI of the thoracic spine planned. Treatment Goals Patient/Caregiver Goals Pt has posterior thoracic pain that radiates around the front under the L breast implant (piercing pain) with walking, cleaning (wiping/ mopping/vacumming), rated 7-8/ 10. Raising the L arm the pain in the back that radiates is eliminated. Pt goal is to: -learn how to transfer to not create pain. -Extend her painfree time to > 30 minutes after getting up in the morning. -Decrease pain 50% to 3-4/10. Personal Factors Other Personal Factors That May Effect Obesity (BMI 30.7) w/history Therapy/Recovery of bariatric surgery with breast implants; Depression, Sleep apnea, DM type 2, COPD, GERD, bronchiectasis, PT-OP-C Subjective Start: 03/29/24 12:36 Freq: Status: Active Protocol: Document 04/19/24 10:47 SP (Rec: 04/19/24 11:36 SP [id number]) OP-PT Subjective Patient Comments Patient Comments Pt reports has had frozen shoulder on L in her past during covid so not active as likes. Still having discomfort under R lateral ribcage. PT-OP-J Posture/Palpation/Skin Start: 03/29/24 12:36 Freq: Status: Active Protocol: Document 03/29/24 14:34 LRN (Rec: 03/29/24 17:09 LRN [id number]) Posture Evaluation Position Standing Head/C-Spine Posture Side Bent Right L-Spine Posture Shifted Left Shoulder Posture (L) Elevated Scapula Posture (R) Rotated Up Pelvis Posture Anteriorly Tilted Knee Posture (L) Genu Varus,(R) Genu Varus Ankle/Foot Posture (L) Supinated,(R) Supinated,(L ) Calcaneal Inversion,(R) Calcaneal Inversion Comments Posture Comments Dowagers hump, flat T/S, T6/T7 rib, Palpation Assessment Location T6-7 Palpation Location Midly tender L intercostal T5-6 Palpation Location Tender at L intercostal T4-5 Palpation Location Mildly tender L intercostal T4-6 Palpation Location PA mob Palpation Findings Tenderness L T6 & T7 Costovertebral jt Palpation Details Pain radiating around the L lateral trunk PT-OP-K Range of Motion Start: 03/29/24 12:36 Freq: Status: Active Protocol: Document 04/12/24 13:01 LRN (Rec: 04/12/24 13:50 LRN [id number]) Shoulder Goniometric Range of Motion Shoulder Right Active Testing Position Supine Flexion 170 Abduction 180 External Rotation at 90 degrees 95 Abduction Left Active Testing Position Supine Flexion 165 Abduction 180 External Rotation at 90 degrees 77 Abduction PT-OP-M Strength Start: 03/29/24 12:36 Freq: Status: Active Protocol: Document 03/29/24 14:34 LRN (Rec: 03/29/24 17:09 LRN [id number]) Cervical Spine Strength Cervical Spine Manual Muscle Testing Rotation Right 4 Good Lateral Flexion Right (C3) 4 Good Comments Strength is 5/5 except as indicated above. Shoulder Strength Shoulder Manual Muscle Testing Right Flexion 3 Fair Comments Strength is 5/5 except as indicated above. Left Flexion 3 Fair Comments Strength is 5/5 except as indicated above PT-OP-Q Treatments Start: 03/29/24 12:36 Freq: Status: Active Protocol: Document 04/19/24 10:47 SP (Rec: 04/19/24 11:36 SP [id number]) Therapeutic Exercises Supine Exercises Child's Pose Supine Exercise Name quadruped Reps/Minutes 3 Breath hold x 5 Comments No pain created, cued arms front Cat/Camel Supine Exercise Name quadruped Reps/Minutes x5 Comments much tacile cues for proper form. Sidelying Exercises L shld ABD Sidelying Exercise Name trialed during HEP Side left Resistance AROM Reps/Minutes 8 reps Comments cues for painfree range, breath last few to support ribcage mobility- impro Open book Side bilateral Resistance AROM Reps/Minutes 8 reps Comments Much trng: VCing delay head turn, VC & tactile segmental mobililty scap/TS Manual Therapy Treatment Consent Patient gave verbal consent for manual Yes treatment Soft Tissue Mobilization L shoulder Body Location L Rhomboid, lat, serratus ant, UT, pec Mobilization Type Rolling,Sustained Pressure, Other Intensity/Depth Moderate Body Position R SL Comments gentle STMs, MWM scapulothoracic open book, shld ABD /c breath end range with reports improvement in lateral ribcage mobility. Joint Mobilizations R scapulothoracic jt Joint PROM & AAROM Direction superior, inferior, protraction, retraction Grade II Body Position R SL Comments gentle scapular mobility then tactile cues with R shld open book & shld ABD painfree range Self-Care/Home Management Treatment Education Patient Education Pain Management,Posture Other Education 8 min: Time spent education on anatomy of scapular complex, ribcage and attachment to sternum and thoracic spine PT-OP-T Assessment and Plan Start: 03/29/24 12:36 Freq: Status: Active Protocol: Document 04/19/24 10:47 SP (Rec: 04/19/24 11:36 SP [id number]) Physical Therapy Assessment Goals Three Impairment Pain during the day with all activities, no pain at night. [employer]p Software Support Goal (LTG) Pt will be able to get up and be painfree for the first 1-2 hrs before onset of discomfort and will be able to manage her pain with exercise to keep her pain at a tolerable level . LTG Duration 05/18/24 Two Impairment Thoracic pain rated 7-8/10 Short Term Goal (STG) Decrease pain 50% to 3-4/10 with lessening of pain onset with cleaning activities STG Duration 04/20/24 Residential Goal (LTG) Decrease pain 75% to 1-2/10 with lessening of pain onset with ADLs. LTG Duration 05/18/24 One Impairment Pt lacks appropriate self care HEP. Short Term Goal (STG) Pt will be educated in log roll transfers, proper body mechanics for ADLs, proper sitting/standing posture. STG Duration 04/20/24 Vp Software Support Goal (LTG) Pt will be independent in an effective self care HEP for shoulder/trunk strengthening and mobility ex's. 04/05/24: HEP: Trunk lat shift to L, Neftali shoulder flex, L shoulder ER stretch. 04/12/24: HEP: R trunk Rot ( sit) & SB (stand), and Open Book. 04/19/24: Trialed in PT L shld ABD, review HABD open book with breath end range for rib and scapular mobility, not added for HEP. LTG Duration 05/18/24 progressed 04/19/24 Assessment Summary Assessment Pt responded well to gentle manual, demonstrated improved scapular segmental mobility with verbal and tactile facilitation support with less tension through ribcage. Verbalized understanding with education provided how mobility and breath helps with tension reduction reported experiences. Pt challenged with motor planning cat/camel TS and LS mobility, tends to wt shift into legs initially and bend elbows. Improved form and TS ext into camel positioning with no pain reports with time and reps. She would benefit from continued education and cuing for mobililty during PT. Physical Therapy Plan Frequency and Duration Frequency of Treatment 2x/Week Duration of treatment (weeks) 7 Plan of Care Start Date 03/29/24 Plan of Care End Date 05/18/24 Therapeutic Interventions Therapeutic Interventions Home Exercise Program,Joint Mobilizations,Manual Therapy, Neuromuscular Re-education, Self-Care/Home Management,Soft Tissue Mobilization, Therapeutic Activities, Therapeutic Exercises Modalities Electric Stimulation,Hot Packs ,Ultrasound Next Visit Focus/Plan Next Note Type Treatment Note Next Visit Plan Continue: cat/camel and LS lateral tilting (tail wag), side openbook/shld ABD during PT with manual breath end range next tx. POC: Issue HEP: trunk flex/ ext AROM quadruped and 4pt LB stretches. Assess gross sensation & functional UE mobility. Review/issue initial HEP (HEP: trunk flex, neck SB). Check Apley's Scratch Test, & scar mob under L breast. Can start with MH while doing T/S mobility ex's (rotation). Review proper sitting sitting weird Educated in log roll transfers , proper body mechanics for ADLs, standing posture. Manual: Scar mob at L breast scar. POC: ROM, stabilization and strengthening, activity tolerance, manual therapy, JMT , neuro re-education, ther act , ther ex, modalities as needed for pain, pt education.
--- NOTE | 2024-04-26 13:50 | PT.OTN ---
Current Diagnoses Pain in thoracic spine (04/26/24) Physical Therapy Treatment Note PT-OP-A Visit Information Start: 03/29/24 12:36 Freq: Status: Active Protocol: Document 04/26/24 13:02 SP (Rec: 04/26/24 13:51 SP [id number]) Out-Patient Physical Therapy Visit Information Visit Information Visit Type Treatment Note Visit Start Time 13:02 Visit Stop Time 13:50 Visit Number 5 (4/10 after eval)/19 visits Number of ROOFING APPRENTICE Visits 2 Evaluation Information Evaluation Date 03/29/24 Precautions Precautions Bariatric, kidney, vascular and breast implant surgery, diabetes type II, bilateral venous insufficiecy - 2002. PT-OP-B Current Condition Start: 03/29/24 12:36 Freq: Status: Active Protocol: Document 03/29/24 14:34 LRN (Rec: 03/29/24 17:09 LRN [id number]) Current Condition History of Current Condition Onset Date 06/25 Current Complaints L sided posterior mid-back radiating around trunk to under bra. History of Current Condition L sided (Thoracic) chest wall pain s/p fall 06/25 when she missed 2 steps coming out of her garage (pt was packing for move to [employer], after retiring), falling on her L side and 2 wks later starting getting pain in posterior T/S that radiated to front under the L breast. Saw Dr. Wallace today and was told she has a pinched nerve and is planning on having an MRI to confirm. Pain is intermittent during the day when being active. States she had PT 3 yrs ago for L LBP with resolution of pain and was told she had a leg that was 1 longer than the other. Prior Treatments and Tests X-ray of thoracic spine: No fractures or dislocations. No suspicious bony lesions. 12 pairs of ribs are noted, and appear intact where visualized . Thoracic radiculopathy involving the left T9 disc. Future Testing and Treatments Planned MRI of the thoracic spine planned. Treatment Goals Patient/Caregiver Goals Pt has posterior thoracic pain that radiates around the front under the L breast implant (piercing pain) with walking, cleaning (wiping/ mopping/vacumming), rated 7-8/ 10. Raising the L arm the pain in the back that radiates is eliminated. Pt goal is to: -learn how to transfer to not create pain. -Extend her painfree time to > 30 minutes after getting up in the morning. -Decrease pain 50% to 3-4/10. Personal Factors Other Personal Factors That May Effect Obesity (BMI 30.7) w/history Therapy/Recovery of bariatric surgery with breast implants; Depression, Sleep apnea, DM type 2, COPD, GERD, bronchiectasis, PT-OP-C Subjective Start: 03/29/24 12:36 Freq: Status: Active Protocol: Document 04/26/24 13:02 SP (Rec: 04/26/24 13:51 SP [id number]) OP-PT Subjective Patient Comments Patient Comments Pt reports there were 2 days last week had to take Gabapentin to help pain reduction L post scap/lateral ribcage radiating around front L ribcage, pointing to approx R8-9. She reported felt ok more mobility later day after PT but more sore next day and day after. PT-OP-J Posture/Palpation/Skin Start: 03/29/24 12:36 Freq: Status: Active Protocol: Document 03/29/24 14:34 LRN (Rec: 03/29/24 17:09 LRN [id number]) Posture Evaluation Position Standing Head/C-Spine Posture Side Bent Right L-Spine Posture Shifted Left Shoulder Posture (L) Elevated Scapula Posture (R) Rotated Up Pelvis Posture Anteriorly Tilted Knee Posture (L) Genu Varus,(R) Genu Varus Ankle/Foot Posture (L) Supinated,(R) Supinated,(L ) Calcaneal Inversion,(R) Calcaneal Inversion Comments Posture Comments Dowagers hump, flat T/S, T6/T7 rib, Palpation Assessment Location T6-7 Palpation Location Midly tender L intercostal T5-6 Palpation Location Tender at L intercostal T4-5 Palpation Location Mildly tender L intercostal T4-6 Palpation Location PA mob Palpation Findings Tenderness L T6 & T7 Costovertebral jt Palpation Details Pain radiating around the L lateral trunk PT-OP-K Range of Motion Start: 03/29/24 12:36 Freq: Status: Active Protocol: Document 04/12/24 13:01 LRN (Rec: 04/12/24 13:50 LRN [id number]) Shoulder Goniometric Range of Motion Shoulder Right Active Testing Position Supine Flexion 170 Abduction 180 External Rotation at 90 degrees 95 Abduction Left Active Testing Position Supine Flexion 165 Abduction 180 External Rotation at 90 degrees 77 Abduction PT-OP-M Strength Start: 03/29/24 12:36 Freq: Status: Active Protocol: Document 03/29/24 14:34 LRN (Rec: 03/29/24 17:09 LRN [id number]) Cervical Spine Strength Cervical Spine Manual Muscle Testing Rotation Right 4 Good Lateral Flexion Right (C3) 4 Good Comments Strength is 5/5 except as indicated above. Shoulder Strength Shoulder Manual Muscle Testing Right Flexion 3 Fair Comments Strength is 5/5 except as indicated above. Left Flexion 3 Fair Comments Strength is 5/5 except as indicated above PT-OP-Q Treatments Start: 03/29/24 12:36 Freq: Status: Active Protocol: Document 04/26/24 13:02 SP (Rec: 04/26/24 13:51 SP [id number]) Therapeutic Exercises Supine Exercises Child's Pose Supine Exercise Name quadruped Reps/Minutes 3 Breath hold x 5 Comments No pain created, cued arms front Wag the Tail Supine Exercise Name quadruped Side bilateral Reps/Minutes x5 Comments No pain created- cued look toward pelvis Cat/Camel Supine Exercise Name quadruped Equipment Used dowel on back improved feedback> progressed without Reps/Minutes x10 total Comments tactile and mod VCs /c dowel along spine for proper form. Sidelying Exercises L shld ABD Sidelying Exercise Name trialed during ther ex- add to HEP /c HO next tx if benefiting 7 form Side right Resistance AROM Equipment Used trunk over pillows Reps/Minutes 8 reps Comments cues for painfree range, breath last few to support ribcage mobility- impro Open book Side bilateral Resistance AROM (if ok add DB next tx) Reps/Minutes 8 reps Comments Occasional VC & tactile segmental scap/TS mobility- pnfree range reported Other Exercises Thread Needle Other Exercise Name quadruped- added to HEP /c HO Side bilateral Resistance AROM Reps/Minutes 3 reps Comments cues for slow painfree range, Thoracic rotation- good feedback response Therapeutic Activity Therapeutic Activity sitting and standing posture Reps/Minutes 3' Comments Instructional performance: sit front chair, B feet on floor shld width apart, neutral spine over pelvis (mid anterior/posterior tilt) posture, body mechanics Reps/Minutes 7' Comments Time spent instruction: 1.log roll- improved performance sit<>SL<> supine 2. squats and lifting crate/ assimulate laundry basket from floor, provided dowel along spine initially assisted carryover hip hinge buttocks back, straighter mid back/ chest lift with cuing, head/ neck retraction neutral but still be able see crate reaching form. Manual Therapy Treatment Consent Patient gave verbal consent for manual Yes treatment Soft Tissue Mobilization L shoulder Body Location L Rhomboid, lat, serratus ant, UT, pec, intercostals R 8-10 Mobilization Type Rolling,Sustained Pressure, Other Intensity/Depth Moderate Body Position R SL over pillow Comments gentle STMs, MWM scapulothoracic open book, shld ABD /c breath end range with reports improvement in lateral ribcage mobility. ROlling and MWM breath sustained pressure intercostals. Joint Mobilizations R ribs Joint Left Ribs 8-10 Comments R SL over pillow- MWM breath rib recoil inhale/exhale R scapulothoracic jt Joint PROM & AAROM Direction superior, inferior, protraction, retraction Grade II Body Position L SL Comments gentle scapular mobility then tactile cues with R shld open book & shld ABD painfree range PT-OP-T Assessment and Plan Start: 03/29/24 12:36 Freq: Status: Active Protocol: Document 04/26/24 13:02 SP (Rec: 04/26/24 13:51 SP [id number]) Physical Therapy Assessment Goals Three Impairment Pain during the day with all activities, no pain at night. Manager Sas Goal (LTG) Pt will be able to get up and be painfree for the first 1-2 hrs before onset of discomfort and will be able to manage her pain with exercise to keep her pain at a tolerable level . LTG Duration 05/18/24 Two Impairment Thoracic pain rated 7-8/10 Short Term Goal (STG) Decrease pain 50% to 3-4/10 with lessening of pain onset with cleaning activities STG Duration 04/20/24 [facility] Goal (LTG) Decrease pain 75% to 1-2/10 with lessening of pain onset with ADLs. LTG Duration 05/18/24 One Impairment Pt lacks appropriate self care HEP. Short Term Goal (STG) Pt will be educated in log roll transfers, proper body mechanics for ADLs, proper sitting/standing posture. 04/26/24: progressing: reviewed log roll and seated posture good form. Initiated squats and lifting crate/ assimulate laundry basket dowel along spine back straight neutral hip hinge use legs lift. STG Duration 04/20/24 progressing 04/26/24 Manager Sas Goal (LTG) Pt will be independent in an effective self care HEP for shoulder/trunk strengthening and mobility ex's. 04/05/24: HEP: Trunk lat shift to L, Neftali shoulder flex, L shoulder ER stretch. 04/12/24: HEP: R trunk Rot ( sit) & SB (stand), and Open Book. 04/19/24: Trialed in PT R shld ABD, review HABD open book with breath end range for rib and scapular mobility, not added for HEP. 04/26/24: added thread needle, reviewed need give HO for cat /camel, wag tail next tx, improved performance with dowel feedback along spine. LTG Duration 05/18/24 progressed 04/26/24 Assessment Summary Assessment Pt responded well to gentle manual and L lateral ribcage gentle STMs and ribrecoil left ribs 8-10 R SL over pillow, L UE front and over head. Improved motor planning cat/ camel with use dowel pushing up and sinking away through TS & LS, will recheck and provide HO next tx. No pain with added thread needle for spinal and ribcage rotational mobility today, provided HO. Pt reports no pain in L lateral ribcage end tx. Pt would benefit from assess per POC L shld mobility. Physical Therapy Plan Frequency and Duration Frequency of Treatment 2x/Week Duration of treatment (weeks) 7 Plan of Care Start Date 03/29/24 Plan of Care End Date 05/18/24 Therapeutic Interventions Therapeutic Interventions Home Exercise Program,Joint Mobilizations,Manual Therapy, Neuromuscular Re-education, Self-Care/Home Management,Soft Tissue Mobilization, Therapeutic Activities, Therapeutic Exercises Modalities Electric Stimulation,Hot Packs ,Ultrasound Next Visit Focus/Plan Next Note Type Treatment Note Next Visit Plan Continue: cat/camel /c dowel and LS lateral tilting (tail wag)- give HO next tx if better performance. Review added thread needle added last tx. If needed give for HEP R lateral SB over pillow /c breath while reach OH for rib mobility. POC: Assess gross sensation & functional UE mobility. Check Apley's Scratch Test, & scar mob under L breast. Can start with MH while doing T/S mobility ex's (rotation). Review proper sitting sitting weird Educated proper body mechanics for ADLs, standing posture. Manual: Scar mob at L breast scar. POC: ROM, stabilization and strengthening, activity tolerance, manual therapy, JMT , neuro re-education, ther act , ther ex, modalities as needed for pain, pt education.
--- NOTE | 2024-05-09 09:05 | PT.OTN ---
Current Diagnoses Pain in thoracic spine (05/09/24) Physical Therapy Treatment Note PT-OP-A Visit Information Start: 03/29/24 12:36 Freq: Status: Active Protocol: Document 05/09/24 08:22 SP (Rec: 05/09/24 09:07 SP [id number]) Out-Patient Physical Therapy Visit Information Visit Information Visit Type Treatment Note Visit Start Time 08:22 Visit Stop Time 09:05 Visit Number 6 (6/10 with eval)/19 visits Number of WELT BEATER Visits 3 Evaluation Information Evaluation Date 03/29/24 Precautions Precautions Bariatric, kidney, vascular and breast implant surgery, diabetes type II, bilateral venous insufficiecy - 2002. PT-OP-B Current Condition Start: 03/29/24 12:36 Freq: Status: Active Protocol: Document 03/29/24 14:34 LRN (Rec: 03/29/24 17:09 LRN [id number]) Current Condition History of Current Condition Onset Date 06/25 Current Complaints L sided posterior mid-back radiating around trunk to under bra. History of Current Condition L sided (Thoracic) chest wall pain s/p fall 06/25 when she missed 2 steps coming out of her garage (pt was packing for move to [employer], after retiring), falling on her L side and 2 wks later starting getting pain in posterior T/S that radiated to front under the L breast. Saw Dr. Wallace today and was told she has a pinched nerve and is planning on having an MRI to confirm. Pain is intermittent during the day when being active. States she had PT 3 yrs ago for L LBP with resolution of pain and was told she had a leg that was 1 longer than the other. Prior Treatments and Tests X-ray of thoracic spine: No fractures or dislocations. No suspicious bony lesions. 12 pairs of ribs are noted, and appear intact where visualized . Thoracic radiculopathy involving the left T9 disc. Future Testing and Treatments Planned MRI of the thoracic spine planned. Treatment Goals Patient/Caregiver Goals Pt has posterior thoracic pain that radiates around the front under the L breast implant (piercing pain) with walking, cleaning (wiping/ mopping/vacumming), rated 7-8/ 10. Raising the L arm the pain in the back that radiates is eliminated. Pt goal is to: -learn how to transfer to not create pain. -Extend her painfree time to > 30 minutes after getting up in the morning. -Decrease pain 50% to 3-4/10. Personal Factors Other Personal Factors That May Effect Obesity (BMI 30.7) w/history Therapy/Recovery of bariatric surgery with breast implants; Depression, Sleep apnea, DM type 2, COPD, GERD, bronchiectasis, PT-OP-C Subjective Start: 03/29/24 12:36 Freq: Status: Active Protocol: Document 05/09/24 08:22 SP (Rec: 05/09/24 09:07 SP [id number]) OP-PT Subjective Patient Comments Patient Comments Pt reports was busy with birthday over the week so did a few exercises like the open book since last tx. Arrives with soreness still since last tx over L UE region. She has appt for injection with Dr Huffman on 05/17. PT-OP-J Posture/Palpation/Skin Start: 03/29/24 12:36 Freq: Status: Active Protocol: Document 03/29/24 14:34 LRN (Rec: 03/29/24 17:09 LRN [id number]) Posture Evaluation Position Standing Head/C-Spine Posture Side Bent Right L-Spine Posture Shifted Left Shoulder Posture (L) Elevated Scapula Posture (R) Rotated Up Pelvis Posture Anteriorly Tilted Knee Posture (L) Genu Varus,(R) Genu Varus Ankle/Foot Posture (L) Supinated,(R) Supinated,(L ) Calcaneal Inversion,(R) Calcaneal Inversion Comments Posture Comments Dowagers hump, flat T/S, T6/T7 rib, Palpation Assessment Location T6-7 Palpation Location Midly tender L intercostal T5-6 Palpation Location Tender at L intercostal T4-5 Palpation Location Mildly tender L intercostal T4-6 Palpation Location PA mob Palpation Findings Tenderness L T6 & T7 Costovertebral jt Palpation Details Pain radiating around the L lateral trunk PT-OP-K Range of Motion Start: 03/29/24 12:36 Freq: Status: Active Protocol: Document 04/12/24 13:01 LRN (Rec: 04/12/24 13:50 LRN [id number]) Shoulder Goniometric Range of Motion Shoulder Right Active Testing Position Supine Flexion 170 Abduction 180 External Rotation at 90 degrees 95 Abduction Left Active Testing Position Supine Flexion 165 Abduction 180 External Rotation at 90 degrees 77 Abduction PT-OP-M Strength Start: 03/29/24 12:36 Freq: Status: Active Protocol: Document 03/29/24 14:34 LRN (Rec: 03/29/24 17:09 LRN [id number]) Cervical Spine Strength Cervical Spine Manual Muscle Testing Rotation Right 4 Good Lateral Flexion Right (C3) 4 Good Comments Strength is 5/5 except as indicated above. Shoulder Strength Shoulder Manual Muscle Testing Right Flexion 3 Fair Comments Strength is 5/5 except as indicated above. Left Flexion 3 Fair Comments Strength is 5/5 except as indicated above PT-OP-Q Treatments Start: 03/29/24 12:36 Freq: Status: Active Protocol: Document 05/09/24 08:22 SP (Rec: 05/09/24 09:07 SP [id number]) Therapeutic Exercises Sidelying Exercises Open book Sidelying Exercise Name HEp Side bilateral Resistance AROM (if ok add DB next tx) Reps/Minutes 10 reps, pause hold last 2 reps 2-3 breaths Comments Occasional VC & tactile segmental scap/TS mobility- pnfree range reported Other Exercises self STMs Other Exercise Name theracane post neck, ball wall UT Comments good feedback response Therapeutic Activity Therapeutic Activity posture, body mechanics Reps/Minutes 25 min Comments Time spent instruction: 1. 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 Manual Therapy Treatment Consent Patient gave verbal consent for manual Yes treatment Soft Tissue Mobilization L shoulder Body Location L Rhomboid, lat, serratus ant, UT, pec, intercostals R 8-10 Mobilization Type Rolling,Sustained Pressure, Other Intensity/Depth Moderate Body Position R SL over pillow Comments gentle STMs, MWM scapulothoracic open book, shld ABD /c breath end range with reports improvement in lateral ribcage mobility. ROlling and MWM breath sustained pressure intercostals. Joint Mobilizations R scapulothoracic jt Joint PROM & AAROM Direction superior, inferior, protraction, retraction Grade II Body Position L SL Comments gentle scapular mobility then tactile cues with R shld open book & shld ABD painfree range PT-OP-T Assessment and Plan Start: 03/29/24 12:36 Freq: Status: Active Protocol: Document 05/09/24 08:22 SP (Rec: 05/09/24 09:07 SP [id number]) Physical Therapy Assessment Goals Three Impairment Pain during the day with all activities, no pain at night. Intermediate Goal (LTG) Pt will be able to get up and be painfree for the first 1-2 hrs before onset of discomfort and will be able to manage her pain with exercise to keep her pain at a tolerable level . 05/09/24: progressing: reports no pain when wakes up performs open book, first few hours pain start L UT and behind mid back to lateral ribcage. LTG Duration 05/18/24 progressing 05/09/24 Two Impairment Thoracic pain rated 7-8/10 Short Term Goal (STG) Decrease pain 50% to 3-4/10 with lessening of pain onset with cleaning activities 05/09/24: still about pain 7-8/ 10 with activities but performs exercises lessens 6-7 /10 with additional ice pack but statees can be more consistant. STG Duration 04/20/24 slow progress 05/09/24 Auto Mechanic Goal (LTG) Decrease pain 75% to 1-2/10 with lessening of pain onset with ADLs. LTG Duration 05/18/24 One Impairment Pt lacks appropriate self care HEP. Short Term Goal (STG) Pt will be educated in log roll transfers, proper body mechanics for ADLs, proper sitting/standing posture. 04/26/24: progressing: reviewed log roll and seated posture good form. Initiated squats and lifting crate/ assimulate laundry basket dowel along spine back straight neutral hip hinge use legs lift. STG Duration 04/20/24 progressing 04/26/24 Auto Mechanic Goal (LTG) Pt will be independent in an effective self care HEP for shoulder/trunk strengthening and mobility ex's. 04/05/24: HEP: Trunk lat shift to L, Neftali shoulder flex, L shoulder ER stretch. 04/12/24: HEP: R trunk Rot ( sit) & SB (stand), and Open Book. 04/19/24: Trialed in PT R shld ABD, review HABD open book with breath end range for rib and scapular mobility, not added for HEP. 04/26/24: added thread needle, reviewed need give HO for cat /camel, wag tail next tx, improved performance with dowel feedback along spine. LTG Duration 05/18/24 progressed 04/26/24 Assessment Summary Assessment Pt good feedback response less muscle tension with instruction/performance use of use theracane and ball/wall self STMs for carryover home. Cues still required for arm, scap glide then TS rotation to allow segmental mobility, good feedback motion and performance. Physical Therapy Plan Frequency and Duration Frequency of Treatment 2x/Week Duration of treatment (weeks) 7 Plan of Care Start Date 03/29/24 Plan of Care End Date 05/18/24 Therapeutic Interventions Therapeutic Interventions Home Exercise Program,Joint Mobilizations,Manual Therapy, Neuromuscular Re-education, Self-Care/Home Management,Soft Tissue Mobilization, Therapeutic Activities, Therapeutic Exercises Modalities Electric Stimulation,Hot Packs ,Ultrasound Next Visit Focus/Plan Next Note Type Treatment Note Next Visit Plan Continue: cat/camel /c dowel and LS lateral tilting (tail wag)- give HO next tx if better performance. Review thread needle. Ask response STMs self. If needed give for HEP R lateral SB over pillow /c breath while reach OH for rib mobility. POC: Assess gross sensation & functional UE mobility. Check Apley's Scratch Test, & scar mob under L breast. Can start with MH while doing T/S mobility ex's (rotation). Review proper sitting sitting weird Educated proper body mechanics for ADLs, standing posture. Manual: Scar mob at L breast scar. POC: ROM, stabilization and strengthening, activity tolerance, manual therapy, JMT , neuro re-education, ther act , ther ex, modalities as needed for pain, pt education.
--- NOTE | 2024-05-15 16:53 | PT.OTN ---
Current Diagnoses Pain in thoracic spine (05/15/24) Physical Therapy Treatment Note PT-OP-A Visit Information Start: 03/29/24 12:36 Freq: Status: Active Protocol: Document 05/15/24 11:34 LRN (Rec: 05/15/24 11:41 LRN [id number]) Out-Patient Physical Therapy Visit Information Visit Information Visit Type Treatment Note Visit Start Time 11:34 Visit Stop Time 12:14 Visit Number 01/19 Evaluation Information Evaluation Date 03/29/24 Precautions Precautions Bariatric, kidney, vascular and breast implant surgery, diabetes type II, bilateral venous insufficiecy - 2002. PT-OP-B Current Condition Start: 03/29/24 12:36 Freq: Status: Active Protocol: Document 03/29/24 14:34 LRN (Rec: 03/29/24 17:09 LRN [id number]) Current Condition History of Current Condition Onset Date 06/25 Current Complaints L sided posterior mid-back radiating around trunk to under bra. History of Current Condition L sided (Thoracic) chest wall pain s/p fall 06/25 when she missed 2 steps coming out of her garage (pt was packing for move to [employer], after retiring), falling on her L side and 2 wks later starting getting pain in posterior T/S that radiated to front under the L breast. Saw Dr. Wallace today and was told she has a pinched nerve and is planning on having an MRI to confirm. Pain is intermittent during the day when being active. States she had PT 3 yrs ago for L LBP with resolution of pain and was told she had a leg that was 1 longer than the other. Prior Treatments and Tests X-ray of thoracic spine: No fractures or dislocations. No suspicious bony lesions. 12 pairs of ribs are noted, and appear intact where visualized . Thoracic radiculopathy involving the left T9 disc. Future Testing and Treatments Planned MRI of the thoracic spine planned. Treatment Goals Patient/Caregiver Goals Pt has posterior thoracic pain that radiates around the front under the L breast implant (piercing pain) with walking, cleaning (wiping/ mopping/vacumming), rated 7-8/ 10. Raising the L arm the pain in the back that radiates is eliminated. Pt goal is to: -learn how to transfer to not create pain. -Extend her painfree time to > 30 minutes after getting up in the morning. -Decrease pain 50% to 3-4/10. Personal Factors Other Personal Factors That May Effect Obesity (BMI 30.7) w/history Therapy/Recovery of bariatric surgery with breast implants; Depression, Sleep apnea, DM type 2, COPD, GERD, bronchiectasis, PT-OP-C Subjective Start: 03/29/24 12:36 Freq: Status: Active Protocol: Document 05/15/24 11:34 LRN (Rec: 05/15/24 11:41 LRN [id number]) OP-PT Subjective Patient Comments Patient Comments Having an injection in the L upper back in 2 days (05/17/24 ). Patient Questionnaires Oswestry Low Back Index Oswestry Score 24/100 (initial was 38/100) Oswestry Impairment 20 to 39% Impaired (Score 20- 39) OP-PT Pain Assessment Location Under L breast Pain Location Details Radiates from L back to underneath L breast, more laterally Intensity 5 Scale Used Numeric (0 - 10) Description Sharp,Shooting,Stabbing Posterior mid back/front chest Pain Location Details T4-6 costovertebral joint Intensity 5 Scale Used Numeric (0 - 10) PT-OP-J Posture/Palpation/Skin Start: 03/29/24 12:36 Freq: Status: Active Protocol: Document 03/29/24 14:34 LRN (Rec: 03/29/24 17:09 LRN [id number]) Posture Evaluation Position Standing Head/C-Spine Posture Side Bent Right L-Spine Posture Shifted Left Shoulder Posture (L) Elevated Scapula Posture (R) Rotated Up Pelvis Posture Anteriorly Tilted Knee Posture (L) Genu Varus,(R) Genu Varus Ankle/Foot Posture (L) Supinated,(R) Supinated,(L ) Calcaneal Inversion,(R) Calcaneal Inversion Comments Posture Comments Dowagers hump, flat T/S, T6/T7 rib, Palpation Assessment Location T6-7 Palpation Location Midly tender L intercostal T5-6 Palpation Location Tender at L intercostal T4-5 Palpation Location Mildly tender L intercostal T4-6 Palpation Location PA mob Palpation Findings Tenderness L T6 & T7 Costovertebral jt Palpation Details Pain radiating around the L lateral trunk PT-OP-K Range of Motion Start: 03/29/24 12:36 Freq: Status: Active Protocol: Document 04/12/24 13:01 LRN (Rec: 04/12/24 13:50 LRN [id number]) Shoulder Goniometric Range of Motion Shoulder Right Active Testing Position Supine Flexion 170 Abduction 180 External Rotation at 90 degrees 95 Abduction Left Active Testing Position Supine Flexion 165 Abduction 180 External Rotation at 90 degrees 77 Abduction PT-OP-M Strength Start: 03/29/24 12:36 Freq: Status: Active Protocol: Document 03/29/24 14:34 LRN (Rec: 03/29/24 17:09 LRN [id number]) Cervical Spine Strength Cervical Spine Manual Muscle Testing Rotation Right 4 Good Lateral Flexion Right (C3) 4 Good Comments Strength is 5/5 except as indicated above. Shoulder Strength Shoulder Manual Muscle Testing Right Flexion 3 Fair Comments Strength is 5/5 except as indicated above. Left Flexion 3 Fair Comments Strength is 5/5 except as indicated above PT-OP-Q Treatments Start: 03/29/24 12:36 Freq: Status: Active Protocol: Document 05/15/24 11:34 LRN (Rec: 05/15/24 12:31 LRN [id number]) Therapeutic Exercises Sidelying Exercises Open book Sidelying Exercise Name HEp - added deep breath at end -range rot Side bilateral Resistance AROM Reps/Minutes 10 reps, pause hold for deep breath at end-range Comments Cue for head rot& tactile segmental scap/TS mobility- pnfree range reported Standing Exercises Trunk flexion Standing Exercise Name Trunk flex stretch Reps/Minutes 5 SH x 5 Comments No c/o pain, pt felt good. Neck stretch Side bilateral Reps/Minutes 10 SH (or 2 breaths) x 5 Comments No c/o pain, pt felt good. Other Exercises 4pt-Wag the tail Side bilateral Reps/Minutes 2 SH x 5 Comments Much extra time needed for training of proper mvmt 4pt-cat/camel stretch Reps/Minutes 2 SH x 5 self STMs Other Exercise Name self STM with tennis ball - reviewed Thread Needle Other Exercise Name 4pt Thread the needle Side bilateral Reps/Minutes 2 SH x 5 each Comments Cued to look at hand and turn head/shoulders Therapeutic Activity Therapeutic Activity posture, body mechanics Name Sitting and standing posture and correct body mechanics training Reps/Minutes 5' Comments Handouts issued and reviewed. Self-Care/Home Management Treatment Education Other Education Discussed & educated pt in post injection care of: Protective proper posturing, proper body mechanics, protective movement of upper body, no heavy lifting. Pt to be protective for at least 6- 8 wks post-injection. Pt agreeable to discharge to a home ex program. Activities Self-Care/Home Management Activities Issued & reviewed HEP: Active trunk flexion, neck SB, cat/ camel, and wag the tail ex. Handouts issued for proper sitting/standing posture and correct body mechanics. PT-OP-T Assessment and Plan Start: 03/29/24 12:36 Freq: Status: Active Protocol: Document 05/15/24 11:34 LRN (Rec: 05/15/24 12:31 LRN [id number]) Physical Therapy Assessment Goals Three Impairment Pain during the day with all activities, no pain at night. Dry Ice Maker Goal (LTG) Pt will be able to get up and be painfree for the first 1-2 hrs before onset of discomfort and will be able to manage her pain with exercise to keep her pain at a tolerable level . 05/09/24: progressing: reports no pain when wakes up performs open book, first few hours pain start L UT and behind mid back to lateral ribcage. LTG Duration 05/18/24 (05/09/24: Partially met goal) Two Impairment Thoracic pain rated 7-8/10 Short Term Goal (STG) Decrease pain 50% to 3-4/10 with lessening of pain onset with cleaning activities 05/09/24: still about pain 7-8/ 10 with activities but performs exercises lessens 6-7 /10 with additional ice pack but statees can be more consistant. 05/15/24: Pain rated 4-5/10. STG Duration 04/20/24 (05/15/24: Partialy met goal) Assisted Goal (LTG) Decrease pain 75% to 1-2/10 with lessening of pain onset with ADLs. 05/15/24: Pain rated 4-5/10. LTG Duration 05/18/24 (05/15/24: NOT MET GOAL) One Impairment Pt lacks appropriate self care HEP. Short Term Goal (STG) Pt will be educated in log roll transfers, proper body mechanics for ADLs, proper sitting/standing posture. 04/26/24: progressing: reviewed log roll and seated posture good form. Initiated squats and lifting crate/ assimulate laundry basket dowel along spine back straight neutral hip hinge use legs lift. 05/15/24: Reviewed proper sit /stand posture and proper body mechanics for ADLs, handout issued. Posture training also given 04/05/24. STG Duration 04/20/24 (05/15/24: MET GOAL) Assisted Goal (LTG) Pt will be independent in an effective self care HEP for shoulder/trunk strengthening and mobility ex's. 04/05/24: HEP: Trunk lat shift to L, Neftali shoulder flex, L shoulder ER stretch. 04/12/24: HEP: R trunk Rot ( sit) & SB (stand), and Open Book. 04/19/24: Trialed in PT R shld ABD, review HABD open book with breath end range for rib and scapular mobility, not added for HEP. 04/26/24: added thread needle, reviewed need give HO for cat /camel, wag tail next tx, improved performance with dowel feedback along spine. 05/15/24: HEP: Active trunk flexion, neck SB, cat/camel, and wag the tail ex. LTG Duration 05/18/24 (05/15/24: Partially met goal, pt trunk AROM ex only) Assessment Summary Assessment Pt is a 63 yo female with L trunk pain that orginates in the midback, T/S costovertebral joint (CVJ), radiating around to the front under her L breast implant. Pain is typical of CV pain. She has less back pain, rated 4-5/10 (was 7-8/10) and is able to do home stretch ex's without an increase in pain. She is sleeping better and wakes first in the morning without pain for the first few hours w/o pain, but as her day progresses her pain increases. She has been progressed onto a mobility program, but had progressed to a strengthening program (pt seen for 6 treatment visits). The pt is expecting a cortisone injection in the thoracic region in 2 days. I would recommend the pt not resume PT immediately after her injectioin and that she continue with her daily activities, focusing on proper posturing, correct body mechanics and maintaining her current mobility. If her pain returns further therapy might be helpful for further core stabilization. Scar tissue from breast implant may have hindering her response to therapy. Physical Therapy Plan Frequency and Duration Frequency of Treatment 2x/Week Duration of treatment (weeks) 7 Plan of Care Start Date 03/29/24 Plan of Care End Date 05/18/24 Other Referrals/Consults Referrals/Consults Recommended If pain not resolved or improved 6-8 wks after injection, consider chiropractic treatment if you feel it would be appropriate. Discharge Physical Therapy Discharge Reasons Change in Medical Status Discharge Comments Pt will be having an injection reportedly in her mid-upper T /S spine; therefore will have a change in status. A new referral will be needed for pt to return to physical therapy . Recommend pt wait 6 wks post injection before return to therapy if needed, or consider eye care professional if you feel this would be appropriate.
== END 2024-06-06 10:02 | disposition home or self-care (01) ==
LOC: PHYS 11:30
PROVIDERS: Family Provider Family Medicine; PCP Family Medicine; Referring Provider Family Medicine; Visit Provider Family Medicine
DX: M54.6 Pain in thoracic spine (principal)
CPT/HCPCS: 97110; 97140; 97162; 97530; 97535

== ENCOUNTER 2024-05-17 08:34 | Outpatient (CLI) | payer MEDICARE, BC, SELFPAY ==
[2024-05-17] VITALS (9 sets, daily range): BP systolic 120–148; BP diastolic 60–87; PULSE 62–76; RESP 11–20; TEMP 36.4; O2SAT 97–99
--- NOTE | 2024-05-17 08:35 | DI.RAD.S_ITS ---
PROCEDURE: PAIN C/T TRANFORAMINAL INJECT INDICATIONS: Left T8/9 TFESI COMPARISON: None. FINDINGS: Fluoroscopic spot filming was performed to verify placement of spinal needles at the T8-T9 level(s), as labeled on the films. Appropriate location(s) of the needle tip(s) was confirmed by injection of iodinated contrast. IMPRESSION: T8-T9 injection, please see operative note for full details Dictated by: Oscar Holt M.D. on 05/17/2024 at 14:31 Approved by: Oscar Holt M.D. on 05/17/2024 at 14:32
[2024-05-17] MEDS: BUPIVACAINE 0.25% (PF) VIAL 2 ML INJ (10:09)
[2024-05-17] MEDS: DEXAMETHASONE 10 MG/ML VIAL 20 MG INJ (10:09)
[2024-05-17] MEDS: iopamidoL 15 ML VIAL 3 ML INJ (10:10)
--- NOTE | 2024-05-17 10:22 | P.PCN_ITS ---
Date/Time/Diagnoses Date of procedure: 05/17/24 Time of procedure: 10:22 Pre-procedure diagnosis: 1. FORAMINAL STENOSIS WITH LE SYMPTOMS Post-procedure diagnosis: same Procedure Notes Procedure: 1. FLUOROSCOPICALLY GUIDED CONTRAST CONTROLLED TRANSFORAMINAL EPIDURAL STEROID INJECTION - LEFT T8/9 TFESI Indications: Mariana is referred by Dr. Welch for treatment of Foraminal Stenosis with Right thoracic Symptoms Physician: Marcial Wallace Total Fluoroscopy time (seconds): 17 Total sedation minutes: 13 Complications: none Procedure in detail & Post-procedure care: FINDINGS Foraminal Nerve Root Compression secondary to disc disease and facet hypertrophy DESCRIPTION OF PROCEDURE Following review of allergy and review of potential side effects and complications, including, but not necessarily limited to, infection, allergic reaction, local tissue breakdown, stroke, temporary or permanent nerve injury, paralysis, and possible , the patient indicated that the patient understood and agreed to proceed. An informed consent document was signed by the patient, witnessed by a nurse, and placed in the patient's chart. Additionally, other treatment options including medications, modalities, and physical therapy were reviewed with the patient. After review of previous anaesthesic history and IV conscious sedation the patient was deemed safe to proceed with today?s procedure with IV conscious sedation as ASA class II designation. Safety time-out was performed to confirm patient ID, procedure to be performed and site of procedure. IV sedation was accomplished with a combination of 1mg of Versed was administered by the RN after DO order, titrated to patient comfort during the course of the procedure while the patient remained responsive to all verbal commands In the prone position following sterile prep and drape of the lumbar region, the left T8-9 posterior neuroforamen was identified fluoroscopically. The skin was anesthetized via a 25-gauge 1.5-inch needle with 1% lidocaine solution. At this point, a 25-gauge 3.5-inch spinal needle was atraumatically introduced and advanced under fluoroscopic guidance through the posterior left T8-9 neuroforamen to approximately the anterior aspect of the canal. Depth was confirmed on lateral view. Following negative aspiration, injection of approximately 1.5cc of Isovue 200 under live fluoroscopy in the AP view confirmed excellent flow along the nerve root, into the epidural space without vascular or intrathecal uptake observed Radiological data, including multiple fluoroscopic views reveal the needle pl acement in the left T8/9 posterior neuroforamen. Subsequent views show flow of contrast material flowing superiorly and inferiorly along the nerve root confirming epidural flow. Subsequently, a test dose of 1.5cc of 1% lidocaine solution was administered and patient was observed for signs or symptoms of complications, including abdominal pain, shortness of breath, bilateral upper or lower extremity weakness, nausea and vomiting, prior to steroid injection. At this point, a total of 2cc or 20mg of dexamethasone was injected without incident. The procedure tolerated the procedure well without signs or symptoms of complications prior to transfer to the recovery area continued monitoring without incident. The patient was then transferred to the recovery area where they were observed for an appropriate time after the injection. The patient reported a VAS score of 7 prior to the procedure and a post- procedure VAS of 1. POST OP INSTRUCTIONS The patient was provided a Pain Log to continue to record their response to the target-specific procedure prior to follow-up visit with their referring physician. Additionally, specific post-injection care instructions and a contact number to our office were provided if concerns arise regarding possible complications associated with the procedure are suspected.
== END 2024-05-17 10:43 | disposition home or self-care (01) ==
PROVIDERS: Family Provider Family Medicine; PCP Family Medicine; Referring Provider Physical Medicine & Rehabilitation; Visit Provider Physical Medicine & Rehabilitation
DX: M51.14 Intervertebral disc disorders with radiculopathy, thoracic region (principal); M47.24 Other spondylosis with radiculopathy, thoracic region
CPT/HCPCS: 64479; 99152; J1100; J3490

== ENCOUNTER → 2024-05-25 13:26 | Outpatient (CLI) | payer MEDICARE, BC, SELFPAY ==
[2024-05-25 13:53] LABS: Add Manual Diff / Slide Review NO; Basophils Absolute Auto 0 /uL (0-100); Basophils Percent Auto 0.5 % (0-2); Eosinophils Absolute Auto 100 /uL (0-450); Eosinophils Percent Auto 1.1 % (2-4); Hematocrit 43.7 % (36-46); Hemoglobin 14.4 g/dL (12.0-16.0); Lymphocytes Absolute Auto 2000 /uL (1100-4500); Lymphocytes Percent Auto 24.5 % (25-40); Mean Corpuscular HGB Conc 32.9 % (30-36); Mean Corpuscular Hemoglobin 30.4 PG (26-34); Mean Corpuscular Volume 92.4 fL (80-100); Monocytes Absolute Auto 400 /uL (0-900); Monocytes Percent Auto 5.3 % (3-14); Neutrophils Absolute Auto 5500 /uL (1500-7000); Neutrophils Percent Auto 68.6 % (50-75); Platelet Count 208 X10^3/uL (150-400); Red Blood Cell Count 4.73 X10^6/uL (4.0-5.2); Red Cell Distribution Width 14.1 % (11.6-14.8)
[2024-05-25 14:13] LABS: Hemoglobin A1C% w Est Avg Glu 6.3 % (4.0-6.0)
[2024-05-25 14:14] LABS: Alanine Aminotransferase 48 IU/L (<35); Albumin 4.4 g/dL (3.5-5.0); Albumin Globulin Ratio 1.5 (1.0-2.8); Alkaline Phosphatase 113 U/L (38-126); Aspartate Aminotransferase 51 IU/L (14-36); BUN Creatinine Ratio 20.9 (6-22); Bilirubin Total 0.6 mg/dL (0.2-1.3); Blood Urea Nitrogen 28 mg/dL (7-17); Calcium 9.5 mg/dL (8.4-10.2); Carbon Dioxide 30 mmol/L (22-32); Chloride 104 mmol/L (98-107); Estimated Glomerular Filt Rate 44 mL/min (>60); Glucose 98 mg/dL (80-110); HEMOLYSIS < 15 (0-50); Potassium 4.1 mmol/L (3.4-5.1); Sodium 141 mmol/L (137-145); Total Protein 7.4 g/dL (6.3-8.2)
[2024-05-25 14:37] LABS: Vitamin D 25 Hydroxy (D3) 73.4 ng/mL (30.0-100.0)
== END ==
LOC: LAB 13:28
PROVIDERS: Family Provider Family Medicine; PCP Family Medicine; Referring Provider Family Medicine; Visit Provider Family Medicine
DX: E55.9 Vitamin D deficiency, unspecified (principal); E11.9 Type 2 diabetes mellitus without complications; E78.5 Hyperlipidemia, unspecified
CPT/HCPCS: 36415; 80053; 82306; 83036; 85025

== ENCOUNTER → 2024-06-07 08:49 | Outpatient (CLI) | payer MEDICARE, BC, SELFPAY ==
[2024-06-07 09:53] LABS: Alanine Aminotransferase 36 IU/L (<35); Albumin 4.2 g/dL (3.5-5.0); Albumin Globulin Ratio 1.6 (1.0-2.8); Alkaline Phosphatase 132 U/L (38-126); Aspartate Aminotransferase 31 IU/L (14-36); BUN Creatinine Ratio 21.2 (6-22); Bilirubin Total 0.8 mg/dL (0.2-1.3); Blood Urea Nitrogen 22 mg/dL (7-17); Calcium 9.7 mg/dL (8.4-10.2); Carbon Dioxide 28 mmol/L (22-32); Chloride 103 mmol/L (98-107); Estimated Glomerular Filt Rate 59 mL/min (>60); Globulin 2.7 g/dL (1.7-4.1); Glucose 95 mg/dL (80-110); HEMOLYSIS < 15 (0-50); Potassium 4.4 mmol/L (3.4-5.1); Sodium 138 mmol/L (137-145); Total Protein 6.9 g/dL (6.3-8.2)
[2024-06-07 12:32] LABS: Appearance Urine UA CLEAR; Bilirubin Urine UA NEGATIVE (NEGATIVE); Color Urine UA YELLOW; Glucose Urine UA 3+ g/dL (Negative); Ketones Urine UA NEGATIVE (NEGATIVE); Leukocyte Esterase Urine UA 1+ (NEGATIVE); Nitrite Urine UA POSITIVE (Negative); Occult Blood Urine UA NEGATIVE (Negative); Protein Urine UA NEGATIVE (Negative); Specific Gravity Urine UA 1.025 (1.000-1.035); Urobilinogen Urine UA 0.2 E.U./dL (0.2)
[2024-06-07 12:33] LABS: pH Urine UA 5.5 (4.5-8.0)
[2024-06-07 13:20] LABS: Bacteria Urine Moderate (10-30); Culture Indicated Urine Cult Not Indicated; RBC Urine 0-1/HPF (0-5/HPF); Squamous Epithelial Cell Urine 1-5 /HPF (0-5/HPF); Urine Volume Low Vol <10mL (spun); WBC Urine 1-5/HPF (0-5/HPF)
[2024-06-07 13:54] LABS: Creatinine Urine Random 89.13 mg/dL
[2024-06-07 14:06] LABS: Protein (Total) Urine Random < 5 mg/dL (0-12); Protein Creatinine Ratio Urine 0.05 GRAM/24H
== END ==
PROVIDERS: Family Provider Family Medicine; PCP Family Medicine; Referring Provider Family Medicine; Visit Provider Family Medicine
DX: E66.9 Obesity, unspecified (principal); E11.9 Type 2 diabetes mellitus without complications; N17.9 Acute kidney failure, unspecified
CPT/HCPCS: 36415; 80053; 81001; 82570; 84156; 87077; 87086; 87186

== ENCOUNTER 2024-07-12 10:06 | Day surgery (SDC) | payer MEDICARE, BC, SELFPAY ==
[2024-07-12 10:29] VITALS: BP 126/81; PULSE 98; RESP 18; TEMP 36.9; O2SAT 99
[2024-07-12] MEDS: SODIUM CHLORIDE 0.9% 1,000 ML 84 ML IV (10:33)
--- NOTE | 2024-07-12 10:58 | P.HP_ITS ---
History of Present Illness History of Present Illness Date Patient Seen: 07/12/24 Time Patient Seen: 10:58 Chief complaint: Screening Colonoscopy Narrative: Mariana is a 64-year-old woman here for colonoscopy. She has had 2 colonoscopies before without polyps. She does have a brother who had colon cancer at a relatively young age. FORMERLY [facility], [facility] Medical History (Updated 07/12/24 @ 10:59 by González Archer MD) Thoracic radiculopathy due to degenerative joint disease of spine Left-sided chest wall pain Eczema of scalp Obesity Simple cyst of left breast Insomnia Pneumonia Sleep apnea COPD (chronic obstructive pulmonary disease) (~2022) Cataracts, bilateral (~2018) GERD (gastroesophageal reflux disease) (~2009) Vitamin D deficiency Venous insufficiency Allergies (~2022) Retinal tear HLD (hyperlipidemia) Bronchiectasis Type 2 diabetes mellitus Surgical History Anesthesia History of endoscopy (~02/2010) History of hysteroscopy (~03/2003) History of bariatric surgery History of kidney surgery History of vascular surgery (~08/2004) History of breast augmentation (~02/2010) History of eye surgery (~02/2023) Family History Father Hypertension Mother Parkinson's disease Social History Smoking Status: Never smoker alcohol intake: current Meds Home Medications and Allergies Home Medications Medication Instructions Recorded Confirmed Type budesonide-formoterol HFA 80 1 inh inhalation ONCE 08/09/23 07/12/24 History mcg-4.5 mcg/actuation aerosol inhaler lifitegrast 5 % eye drops in a drp EYE-BOTH 08/09/23 07/11/24 History dropperette (Xiidra) fluticasone propionate 50 1 spray intranasal DAILY #16 grams 09/19/23 07/11/24 Rx mcg/actuation nasal spray,suspension (Allergy Relief (fluticasone)) sharps container #1 ea 10/20/23 07/11/24 Rx fexofenadine 180 mg tablet 180 mg PO DAILY #90 tabs 11/25/23 07/11/24 Rx (Allergy Relief (fexofenadine)) ibuprofen 600 mg tablet 600 mg PO Q8H PRN pain #60 tabs 03/02/24 07/12/24 Rx gabapentin 300 mg capsule 300 mg PO .COMPLEX #90 caps 03/29/24 07/11/24 Rx diazepam 10 mg tablet (Valium) 10 mg PO .COMPLEX #7 tabs 05/16/24 07/12/24 Rx cholecalciferol (vitamin D3) 25 25 mcg PO DAILY #90 caps 06/07/24 07/12/24 Rx mcg (1,000 unit) capsule clotrimazole 1 % topical cream 1 applic topical BID #45 grams 06/07/24 07/12/24 Rx (Antifungal (clotrimazole)) empagliflozin 10 mg-metformin ER 1 tab PO DAILY #90 ea 06/07/24 07/12/24 Rx 1,000 mg tablet,extended release 24hr (Synjardy XR) tirzepatide 2.5 mg/0.5 mL 2.5 mg (0.5 mL) SUBCUT QWEEK #6 mL 06/07/24 07/12/24 Rx subcutaneous pen injector (Mounjaro) atorvastatin 10 mg tablet 10 mg PO DAILY #90 tabs 06/13/24 07/12/24 Rx semaglutide 2 mg/dose (8 mg/3 mL) 2 mg (0.75 mL) SUBCUT QWEEK #9 mL 06/14/24 07/11/24 Rx subcutaneous pen injector (Ozempic) Allergies Allergy/AdvReac Type Severity Reaction Status Date / Time Hay Fever AdvReac Intermediate Congested Uncoded 07/11/24 10:29 Exam Vital Signs (past 8 hours): - 07/12/24 10:29 Temperature 98.5 F Pulse Rate 98 H Respiratory Rate 18 Blood Pressure 126/81 Pulse Oximetry 99 Oxygen Delivery Method Room Air Oxygen Delivery Method Room Air Const General: healthy appearing Resp Effort & Inspection: normal respiratory effort Assessment & Plan Assessment and plan (1) Colon cancer screening: Status: Acute Plan Colonoscopy due to a family history of colon cancer. Time-Based Coding :: [TOTAL MINUTES] spent with patient and on the chart (including review of chart, obtaining history, exam, reviewing outside data, placing orders, documenting exam and treatment plan, and counseling patient) on [DATE].
--- NOTE | 2024-07-12 11:43 | SUR.OPER ---
polyp removed with cold snare, unable to retrieve specimen.
[2024-07-12 11:50] VITALS: BP 113/64; PULSE 86; RESP 16; TEMP 36.8; O2SAT 98
--- NOTE | 2024-07-12 11:50 | PM.OP.COLON ---
Operative Date/Time/Diagnoses Date of procedure: 07/12/24 Time of procedure: 11:50 Pre-op diagnosis: Family history of colon cancer Post-op diagnosis: same Procedure & Clinicians Study performed: Colonoscopy Same procedure as scheduled: Yes Surgeon: González Archer Procedure Notes Procedure in detail: Surgeon: González Archer MD Anesthesia: Roni Lanza D.O. Procedure: The patient was brought to the endoscopy suite, placed in left lateral decubitus position. The patient was connected to monitoring devices. A time-out was performed. Sedation was administered. Once the patient was adequately sedated, a digital rectal exam was performed and was normal. The scope was then inserted and advanced to the cecum where the appendiceal orifice was identified and photographed. The scope was then slowly withdrawn over greater than 6 minutes. The mucosa was thoroughly inspected. There was a 3 mm polyp in the proximal transverse colon removed with a cold snare. It was not able to be retrieved despite surgery and the entire colon over 10 minutes. The scope was retroflexed in the rectum. No other abnormalities were found. The scope was straightened and removed. The patient was awakened and brought to recovery. Scope withdrawal time: 20 minutes Sedation time: 25 minute EBL: 3 mL Findings: 3 mm transverse colon polyp that was not retrieved Post-procedure Recommendations: Colonoscopy in 5 years Disposition: PACU
[2024-07-12 11:51] VITALS: BP 112/64; PULSE 93; RESP 16; O2SAT 98
[2024-07-12 11:57] VITALS: BP 112/64; PULSE 87; RESP 16; TEMP 36.2; O2SAT 98
[2024-07-12 12:02] VITALS: BP 113/64; PULSE 82; RESP 16; TEMP 36.8; O2SAT 98
== END 2024-07-12 12:26 | disposition home or self-care (01) ==
PROVIDERS: Family Provider Family Medicine; PCP Family Medicine; Referring Provider Surgery; Visit Provider Surgery
PROC: 0DJD8ZZ Inspection of Lower Intestinal Tract, Via Natural or Artificial Opening Endoscopic (ICD-10-PCS; CPT 45378; principal; 2024-07-12 11:15)
DX: Z12.11 Encounter for screening for malignant neoplasm of colon (principal); Z80.0 Family history of malignant neoplasm of digestive organs; K63.5 Polyp of colon
CPT/HCPCS: 45385; 82962; J2704

== ENCOUNTER → 2024-08-14 08:23 | Outpatient (CLI) | payer MEDICARE, BC, SELFPAY | PROVIDERS: Family Provider Family Medicine; PCP Family Medicine; Visit Provider Physician Assistant Surgical | DX: R30.0 Dysuria (principal) | CPT/HCPCS: 87077; 87086; 87186 ==

== ENCOUNTER → 2024-08-15 08:45 | Outpatient (CLI) | payer MEDICARE, BC, SELFPAY ==
[2024-08-15 10:50] LABS: Alanine Aminotransferase 33 IU/L (<35); Albumin 4.5 g/dL (3.5-5.0); Albumin Globulin Ratio 1.6 (1.0-2.8); Alkaline Phosphatase 118 U/L (38-126); Aspartate Aminotransferase 34 IU/L (14-36); BUN Creatinine Ratio 37.3 (6-22); Bilirubin Total 0.8 mg/dL (0.2-1.3); Blood Urea Nitrogen 31 mg/dL (7-17); Calcium 9.7 mg/dL (8.4-10.2); Carbon Dioxide 27 mmol/L (22-32); Chloride 104 mmol/L (98-107); Estimated Glomerular Filt Rate > 60 mL/min (>60); Globulin 2.9 g/dL (1.7-4.1); Glucose 110 mg/dL (80-110); HEMOLYSIS < 15 (0-50); Sodium 138 mmol/L (137-145); Total Protein 7.4 g/dL (6.3-8.2)
[2024-08-15 11:05] LABS: Vitamin D 25 Hydroxy (D3) 53.9 ng/mL (30.0-100.0)
== END ==
PROVIDERS: Family Provider Family Medicine; PCP Family Medicine; Referring Provider Family Medicine; Visit Provider Family Medicine
DX: E55.9 Vitamin D deficiency, unspecified (principal); R79.89 Other specified abnormal findings of blood chemistry; E11.69 Type 2 diabetes mellitus with other specified complication; N17.9 Acute kidney failure, unspecified; Z98.84 Bariatric surgery status
CPT/HCPCS: 36415; 80053; 82306

== ENCOUNTER → 2024-08-31 08:18 | Outpatient (CLI) | payer MEDICARE, BC, SELFPAY ==
[2024-08-31 08:57] LABS: Add Manual Diff / Slide Review NO; Basophils Absolute Auto 0 /uL (0-100); Basophils Percent Auto 0.5 % (0-2); Eosinophils Absolute Auto 100 /uL (0-450); Eosinophils Percent Auto 1.6 % (2-4); Hematocrit 42.6 % (36-46); Hemoglobin 14.2 g/dL (12.0-16.0); Lymphocytes Absolute Auto 1600 /uL (1100-4500); Lymphocytes Percent Auto 29.7 % (25-40); Mean Corpuscular HGB Conc 33.2 % (30-36); Mean Corpuscular Hemoglobin 30.5 PG (26-34); Mean Corpuscular Volume 91.7 fL (80-100); Monocytes Absolute Auto 300 /uL (0-900); Monocytes Percent Auto 6.2 % (3-14); Neutrophils Absolute Auto 3400 /uL (1500-7000); Platelet Count 192 X10^3/uL (150-400); Red Blood Cell Count 4.65 X10^6/uL (4.0-5.2); White Blood Cell Count 5.4 X10^3/uL (4.5-11.0)
[2024-08-31 09:17] LABS: Appearance Urine UA CLOUDY; Bilirubin Urine UA NEGATIVE (NEGATIVE); Color Urine UA YELLOW; Glucose Urine UA 3+ g/dL (Negative); Ketones Urine UA NEGATIVE (NEGATIVE); Leukocyte Esterase Urine UA 1+ (NEGATIVE); Nitrite Urine UA POSITIVE (Negative); Occult Blood Urine UA TRACE-INTACT (Negative); Protein Urine UA NEGATIVE (Negative); Urobilinogen Urine UA 0.2 E.U./dL (0.2)
[2024-08-31 09:24] LABS: Cholesterol 146 mg/dL (140-199); HDL Cholesterol 81 mg/dL (40-60); LDL Cholesterol Calculated 52 mg/dL (<100); Triglycerides 66 mg/dL (35-150)
[2024-08-31 09:26] LABS: Hemoglobin A1C% w Est Avg Glu 5.9 % (4.0-6.0)
[2024-08-31 09:27] LABS: Bacteria Urine Many (>30); Culture Indicated Urine Specimen Cultured; RBC Urine None Seen (0-5/HPF); Squamous Epithelial Cell Urine 10-30 /HPF (0-5/HPF); Urine Volume 10mL (spun); WBC Urine 30-100/HPF (0-5/HPF)
[2024-08-31 09:54] LABS: TSH w/ Reflex to FT4 2.32 uIU/mL (0.47-4.68)
== END ==
PROVIDERS: Family Provider Family Medicine; PCP Family Medicine; Referring Provider Family Medicine; Visit Provider Family Medicine
DX: R79.89 Other specified abnormal findings of blood chemistry (principal); E11.9 Type 2 diabetes mellitus without complications; R53.83 Other fatigue; R30.0 Dysuria; E78.5 Hyperlipidemia, unspecified
CPT/HCPCS: 36415; 80061; 81001; 83036; 84443; 85025; 87077; 87086

== ENCOUNTER 2024-09-04 08:32 | Outpatient (CLI) | payer MEDICARE, BC, SELFPAY ==
[2024-09-04] VITALS (8 sets, daily range): BP systolic 94–131; BP diastolic 46–78; PULSE 65–76; RESP 14–17; TEMP 36.6; O2SAT 95–99
[2024-09-04] MEDS: MIDAZOLAM 2 MG/2 ML VIAL 1 MG IV (09:41)
[2024-09-04] MEDS: iopamidoL 15 ML VIAL 3 ML INJ (09:44)
[2024-09-04] MEDS: DEXAMETHASONE 10 MG/ML VIAL 20 MG INJ (09:44)
[2024-09-04] MEDS: BUPIVACAINE 0.25% (PF) VIAL 2 ML INJ (09:44)
--- NOTE | 2024-09-04 10:00 | P.PCN_ITS ---
Date/Time/Diagnoses Date of procedure: 09/04/24 Time of procedure: 10:01 Pre-procedure diagnosis: 1. FORAMINAL STENOSIS WITH LE SYMPTOMS Post-procedure diagnosis: same Procedure Notes Procedure: 1. FLUOROSCOPICALLY GUIDED CONTRAST CONTROLLED TRANSFORAMINAL EPIDURAL STEROID INJECTION - LEFT T6/7 TFESI Indications: Mariana is referred by Dr. Welch for treatment of Foraminal Stenosis with Right thoracic Symptoms Physician: Marcial Wallace Total Fluoroscopy time (seconds): 13 Total sedation minutes: 14 Complications: none Procedure in detail & Post-procedure care: FINDINGS Foraminal Nerve Root Compression secondary to disc disease and facet hypertrophy DESCRIPTION OF PROCEDURE Following review of allergy and review of potential side effects and complications, including, but not necessarily limited to, infection, allergic reaction, local tissue breakdown, stroke, temporary or permanent nerve injury, paralysis, and possible , the patient indicated that the patient understood and agreed to proceed. An informed consent document was signed by the patient, witnessed by a nurse, and placed in the patient's chart. Additionally, other treatment options including medications, modalities, and physical therapy were reviewed with the patient. After review of previous anaesthesic history and IV conscious sedation the patient was deemed safe to proceed with today?s procedure with IV conscious sedation as ASA class II designation. Safety time-out was performed to confirm patient ID, procedure to be performed and site of procedure. IV sedation was accomplished with a combination of 1mg of Versed was administered by the RN after DO order, titrated to patient comfort during the course of the procedure while the patient remained responsive to all verbal commands In the prone position following sterile prep and drape of the lumbar region, the left T6/7 posterior neuroforamen was identified fluoroscopically. The skin was anesthetized via a 25-gauge 1.5-inch needle with 1% lidocaine solution. At this point, a 25-gauge 3.5-inch spinal needle was atraumatically introduced and advanced under fluoroscopic guidance through the posterior left T6/7 neuroforamen to approximately the anterior aspect of the canal. Depth was confirmed on lateral view. Following negative aspiration, injection of approximately 1.5cc of Isovue 200 under live fluoroscopy in the AP view confirmed excellent flow along the nerve root, into the epidural space without vascular or intrathecal uptake observed Radiological data, including multiple fluoroscopic views reveal the needle pl acement in the left T6/7 posterior neuroforamen. Subsequent views show flow of contrast material flowing superiorly and inferiorly along the nerve root confirming epidural flow. Subsequently, a test dose of 1.5cc of 1% lidocaine solution was administered and patient was observed for signs or symptoms of complications, including abdominal pain, shortness of breath, bilateral upper or lower extremity weakness, nausea and vomiting, prior to steroid injection. At this point, a total of 2cc or 20mg of dexamethasone was injected without incident. The procedure tolerated the procedure well without signs or symptoms of complications prior to transfer to the recovery area continued monitoring without incident. The patient was then transferred to the recovery area where they were observed for an appropriate time after the injection. The patient reported a VAS score of 7 prior to the procedure and a post- procedure VAS of 1. POST OP INSTRUCTIONS The patient was provided a Pain Log to continue to record their response to the target-specific procedure prior to follow-up visit with their referring physician. Additionally, specific post-injection care instructions and a contact number to our office were provided if concerns arise regarding possible complications associated with the procedure are suspected.
== END 2024-09-04 10:15 | disposition home or self-care (01) ==
LOC: RAD 08:33
PROVIDERS: Family Provider Family Medicine; PCP Family Medicine; Referring Provider Physical Medicine & Rehabilitation; Visit Provider Physical Medicine & Rehabilitation
DX: M48.04 Spinal stenosis, thoracic region (principal); M47.24 Other spondylosis with radiculopathy, thoracic region; M51.14 Intervertebral disc disorders with radiculopathy, thoracic region
CPT/HCPCS: 64479; 99152; J1100; J2250; J3490

== ENCOUNTER → 2024-12-11 07:19 | Outpatient (CLI) | payer MEDICARE, BC, SELFPAY ==
[2024-12-11 08:03] LABS: Appearance Urine UA CLOUDY; Bilirubin Urine UA NEGATIVE (NEGATIVE); Color Urine UA YELLOW; Glucose Urine UA 3+ g/dL (Negative); Ketones Urine UA NEGATIVE (NEGATIVE); Leukocyte Esterase Urine UA 2+ (NEGATIVE); Nitrite Urine UA NEGATIVE (Negative); Occult Blood Urine UA TRACE-INTACT (Negative); Protein Urine UA NEGATIVE (Negative); Specific Gravity Urine UA 1.025 (1.000-1.035); Urobilinogen Urine UA 0.2 E.U./dL (0.2)
[2024-12-11 08:07] LABS: pH Urine UA 5.5 (4.5-8.0)
[2024-12-11 08:22] LABS: Urine Volume 10mL (spun)
[2024-12-11 08:23] LABS: Bacteria Urine Moderate (10-30); Culture Indicated Urine Cult Not Indicated; Mucus Urine 3+ (Negative); RBC Urine 5-10/HPF (0-5/HPF); Squamous Epithelial Cell Urine 10-30 /HPF (0-5/HPF); WBC Urine 10-30/HPF (0-5/HPF)
== END ==
PROVIDERS: Family Provider Family Medicine; PCP Family Medicine; Referring Provider Family Medicine; Visit Provider Family Medicine
DX: R30.0 Dysuria (principal)
CPT/HCPCS: 81001

== ENCOUNTER → 2024-12-12 14:53 | Outpatient (CLI) | payer MEDICARE, BC, SELFPAY ==
[2024-12-12 15:23] LABS: Appearance Urine UA SL CLOUDY; Bilirubin Urine UA NEGATIVE (NEGATIVE); Color Urine UA YELLOW; Glucose Urine UA 3+ g/dL (Negative); Ketones Urine UA NEGATIVE (NEGATIVE); Leukocyte Esterase Urine UA 1+ (NEGATIVE); Nitrite Urine UA NEGATIVE (Negative); Occult Blood Urine UA NEGATIVE (Negative); Protein Urine UA NEGATIVE (Negative); Urobilinogen Urine UA 0.2 E.U./dL (0.2)
[2024-12-12 15:31] LABS: pH Urine UA 5.5 (4.5-8.0)
[2024-12-12 15:33] LABS: Bacteria Urine Many (>30); RBC Urine 0-1/HPF (0-5/HPF); Squamous Epithelial Cell Urine 5-10 /HPF (0-5/HPF); Urine Volume 10mL (spun); WBC Urine 5-10/HPF (0-5/HPF)
== END ==
PROVIDERS: Family Provider Family Medicine; PCP Family Medicine; Referring Provider Family Medicine; Visit Provider Family Medicine
DX: R30.0 Dysuria (principal)
CPT/HCPCS: 81001; 87086

== ENCOUNTER → 2025-02-11 07:37 | Outpatient (CLI) | payer MEDICARE, BC, SELFPAY ==
[2025-02-11 08:26] LABS: Add Manual Diff / Slide Review NO; Hematocrit 42.5 % (36-46); Hemoglobin 14.2 g/dL (12.0-16.0); Lymphocytes Absolute Auto 1600 /uL (1100-4500); Mean Corpuscular HGB Conc 33.5 % (30-36); Mean Corpuscular Hemoglobin 30.5 PG (26-34); Mean Corpuscular Volume 91.0 fL (80-100); Platelet Count 198 X10^3/uL (150-400)
[2025-02-11 08:32] LABS: Hemoglobin A1C% w Est Avg Glu 6.3 % (4.0-6.0)
[2025-02-11 08:38] LABS: Alanine Aminotransferase 26 IU/L (<35); Albumin 4.3 g/dL (3.5-5.0); Albumin Globulin Ratio 1.4 (1.0-2.8); Alkaline Phosphatase 128 U/L (38-126); Blood Urea Nitrogen 27 mg/dL (7-17); Calcium 9.6 mg/dL (8.4-10.2); Carbon Dioxide 25 mmol/L (22-32); Chloride 106 mmol/L (98-107); Estimated Glomerular Filt Rate > 60 mL/min (>60); Globulin 3.0 g/dL (1.7-4.1); Glucose 119 mg/dL (70-99); HEMOLYSIS 16 (0-50); Potassium 4.2 mmol/L (3.4-5.1); Sodium 140 mmol/L (137-145); Total Protein 7.3 g/dL (6.3-8.2)
== END ==
PROVIDERS: Family Provider Family Medicine; PCP Family Medicine; Referring Provider Family Medicine; Visit Provider Family Medicine
DX: R79.89 Other specified abnormal findings of blood chemistry (principal); E11.9 Type 2 diabetes mellitus without complications; E66.9 Obesity, unspecified
CPT/HCPCS: 36415; 80053; 83036; 85025

== ENCOUNTER → 2025-03-14 09:53 | Outpatient (CLI) | payer MEDICARE, BC, SELFPAY | PROVIDERS: PCP Family Medicine; Visit Provider Nurse Practitioner Family | DX: R30.0 Dysuria (principal) | CPT/HCPCS: 87077; 87086; 87186 ==

== ENCOUNTER 2025-03-15 07:30 | Outpatient (RCR) | payer MEDICARE, BC, SELFPAY ==
--- NOTE | 2025-02-06 09:31 | PT.OIE ---
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) Unspecified amblyopia, bilateral (02/06/25) Unspecified abnormalities of gait and mobility (02/06/25) Headache, unspecified (02/06/25) Family history of epilepsy and other diseases of the nervous system (02/06/25) History of falling (02/06/25) Past Medical History (Last Reviewed 11/18/24 @ 10:56 by BISMARK Vivas) Allergies (~2022) Bronchiectasis Cataracts, bilateral (~2018) COPD (chronic obstructive pulmonary disease) (~2022) Eczema of scalp GERD (gastroesophageal reflux disease) (~2009) HLD (hyperlipidemia) Insomnia Left-sided chest wall pain Obesity Other low back pain Pneumonia Retinal tear Simple cyst of left breast Sleep apnea Thoracic radiculopathy due to degenerative joint disease of spine Type 2 diabetes mellitus Venous insufficiency Vitamin D deficiency Past Surgical History (Last Reviewed 11/18/24 @ 10:56 by BISMARK Vivas) Anesthesia History of bariatric surgery History of breast augmentation (~02/2010) History of endoscopy (~02/2010) History of eye surgery (~02/2023) History of hysteroscopy (~03/2003) History of kidney surgery History of vascular surgery (~08/2004) Visit Care Team Role Provider Type Cornelia Welch MD Family Provider Physician Primary Care Provider Specialty: Family Practice SHIPPING ASSISTANT Address: [facility] [place], [address] Email: [email or web address] William Granados MD Attending Provider Non-Staff Referring Provider Specialty: Psychiatry Address: [address] [place], [address] Email: Physical Therapy Initial Evaluation PT OP: Balance, Vestibular, Neuro Start: 02/06/25 07:37 Freq: Status: Active Protocol: Document 02/06/25 09:15 KW (Rec: 02/06/25 09:30 KW Laptop) Out-Patient Physical Therapy Visit Information Visit Information Visit Type Initial Evaluation Visit Start Time :30 Visit Stop Time 08:10 Visit Number 1 Progress Note Due 03/08/25 Evaluation Information Evaluation Date 02/06/25 OP-PT Subjective Patient Comments Patient Comments patient with h/o a fall 06/25/23. Neurologist referred her here for PT: gait and balance. She sustained a pinched nerve after that fall and came for PT at that time, felt relief from the massage she received yet has not continued with massage therapy as she can't find anyone who will bill insurance for massage. Does some walking for fitness. Sleeps with a C-pap. monitors resting blood sugars 2 x a week. She would like to re- learn how to ride a bicycle now that she is retired. Patient Questionnaires ABC- Activity Specific Balance Confidence Scale ABC Score 75 ABC Functional 20 to <40% Impaired (Score 61-80) Impairment OP-PT Pain Assessment Location spine Pain Location left mid back Details Pain Intensity 8 Scale Used Numeric (0 - 10) Balance Tests Lei Balance Test Lei Balance Test 40 Score Lei Impairment 20 to 39% Impaired (Score 34-44) Rating Romberg Romberg negative Single Limb Standing Single Limb- Right 3 Single Limb- Left 12 Tandem Tandem Standing 10, challenged with head turns Functional Tests Five Times Sit to Stand Test Score 10 Tinetti Balance and Gait Assessment Balance Score 12 OP Gait Assessment Gait Gait Assistance Independent Required: Comments Gait Comments minimal arm swing, slower irving Stair Climbing Evaluation Comments Stair Climbing needs to use 1 rail Comments Sensation Evaluation Gross Sensation Gross Sensation WNL Posture Evaluation Comments Posture Comments wide NAHID, petite in sitting feet do not hit floor with standard chair Lumbar Spine Range of Motion Lumbar Spine Active Testing Position Standing Flexion 70 ROM Limitations Soft Tissue Tightness,Muscle Tone Hip Strength Hip Manual Muscle Testing Right Flexion (L2) 4- Good- Extension (S1) 4- Good- Abduction 4- Good- Adduction 4- Good- External Rotation 4- Good- Internal Rotation 4- Good- Left Flexion (L2) 4- Good- Extension (S1) 4- Good- Abduction 4- Good- Adduction 4- Good- External Rotation 4- Good- Internal Rotation 4- Good- Neuro Re-Education Treatment Balance Activities standing corner Details standing corner static progression, handout issued Comments standing in corner with chair in front for safety Self-Care/Home Management Treatment Education Patient Education Body Mechanics,Fall Risk,Home Exercise Program,Joint Protection,Pain Management,Posture Caregiver Education instructed in massage therapy exercise classes at [facility] encouraged her to joint the pool or gym Physical Therapy Assessment Rehab Potential Rehabilitation Fair Potential Evaluation Complexity Number of Personal 1-2 Factors/ Comorbidities Number of Body 3 Systems Impaired Impairments Impairments Activity Tolerance,Balance,Functional Activities, Functional Mobility,Gait,Pain,Posture,Strength Other Concerns Fall Risk yes Barriers to co-morbidities Rehabilitation sedentary Goals Two Impairment impaired balance Short Term Goal (STG patient improves ABC confidence to 85% ) STG Duration 6 weeks One Impairment lack of HEP Short Term Goal (STG patient demonstrates compliance with basic HEP ) STG Duration 6 weeks Assessment Summary Assessment patient with low fitness, impaired strength and balance . patient will benefit from skilled PT to work on CORE and LE strength, gait, balance, movement strategies in order to prevent future falls. This round of PT will focus on fitness and balance. No manual therapy. Should she prefer massage therapy, there are community based programs she can access. Physical Therapy Plan Frequency and Duration Frequency of 2x/Week Treatment Duration of 6 treatment (weeks) Plan of Care Start 02/06/25 Date Plan of Care End 05/09/25 Date Therapeutic Interventions Therapeutic Balance Training,Gait Training,Home Exercise Program, Interventions Neuromuscular Re-education,Patient/Caregiver Education, Self-Care/Home Management,Sensory Integration, Therapeutic Activities,Therapeutic Exercises Modalities Cold Pack/Ice Massage,Hot Packs Next Visit Focus/Plan Next Note Type Treatment Note Next Visit Plan Nu step, shuttle, shuttle balance.
--- NOTE | 2025-02-08 08:15 | PT.OTN ---
Current Diagnoses Type 2 diabetes mellitus without complications (02/08/25) Spasmodic torticollis (02/08/25) Unspecified amblyopia, bilateral (02/08/25) Unspecified abnormalities of gait and mobility (02/08/25) Headache, unspecified (02/08/25) Family history of epilepsy and other diseases of the nervous system (02/08/25) History of falling (02/08/25) Physical Therapy Treatment Note PT OP: Balance, Vestibular, Neuro Start: 02/06/25 07:37 Freq: Status: Active Protocol: Document 02/08/25 07:32 SP (Rec: 02/08/25 08:17 SP [id number]) Out-Patient Physical Therapy Visit Information Visit Information Visit Type Treatment Note Visit Start Time 07:34 Visit Stop Time 08:15 Visit Number 2 Number of PRODUCT SUPPORT SPECIALIST Visits 1 Progress Note Due 03/08/25 OP-PT Subjective Patient Comments Patient Comments Pt reports wants to get back to riding outside bike and considering an ebike and confident PT will help improved her strength and balance. She asked what should be mindful of when looking into a bike purchase besides what thought about: height proper fit/wheel size, seat comfort, weight can lift if needed, storage or devices needed for transportation. 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 Reps/Time 10 Bilateral Squats Resistance 50# 2 [employer] (increase next tx) Reps/Time 15 Shuttle Balance Red Details add next tx Therapeutic Ball 65cm tball Exercise Details future appt: pelvic tilts, marching, LAQ Comments work on stability for return to biking Neuro Re-Education Treatment Balance Activities standing corner Details REviewed standing corner static progression: tandem today Equipment corner at back and chair front Comments HTs cued tall, rhomboid, core Self-Care/Home Management Treatment Education Patient Education Safety Other Education Discussion while riding stationary bike speak to staff at [employer] in [facility], suggested [place] [employer] about [employer] interested in and some things to consider: proper height fit (foot in lowest position knee slight bendwith level pelvis on seat or when standing side of bike seat at approx hip height)/wheel size, seat comfort, weight can lift if needed, storage or devices needed for transportation. Physical Therapy Assessment Goals Two Impairment impaired balance Short Term Goal (STG patient improves ABC confidence to 85% ) STG Duration 6 weeks One Impairment lack of HEP Short Term Goal (STG patient demonstrates compliance with basic HEP ) STG Duration 6 weeks Assessment Summary Assessment Pt improved self corrections during corner balance with progressed instructions incorporating slow head turns in tandem today: rhomboid,core and glut engagement helped support midlline stability. Trialed use of stationary bike today for warm up and education provided for self biking with good feedback response. Initiated shuttle recovery for LE strengthening to support balance activities today, good feedback muscle tiring. Physical Therapy Plan Frequency and Duration Frequency of 2x/Week Treatment Duration of 6 treatment (weeks) Plan of Care Start 02/06/25 Date Plan of Care End 05/09/25 Date Therapeutic Interventions Therapeutic Balance Training,Gait Training,Home Exercise Program, Interventions Neuromuscular Re-education,Patient/Caregiver Education, Self-Care/Home Management,Sensory Integration, Therapeutic Activities,Therapeutic Exercises Modalities Cold Pack/Ice Massage,Hot Packs Next Visit Focus/Plan Next Note Type Treatment Note Next Visit Plan Recheck corner balance HTs in tandem last tx. POC: Nu step, shuttle recovery, shuttle balance. eg. future seated on tball 65cm pelvis tilts/september for assimulation trunk stability for return to biking.
--- NOTE | 2025-02-13 08:17 | PT.OTN ---
Current Diagnoses Type 2 diabetes mellitus without complications (02/13/25) Spasmodic torticollis (02/13/25) Unspecified amblyopia, bilateral (02/13/25) Unspecified abnormalities of gait and mobility (02/13/25) Headache, unspecified (02/13/25) Family history of epilepsy and other diseases of the nervous system (02/13/25) History of falling (02/13/25) Physical Therapy Treatment Note PT OP: Balance, Vestibular, Neuro Start: 02/06/25 07:37 Freq: Status: Active Protocol: Document 02/13/25 07:34 SP (Rec: 02/13/25 08:20 SP [id number]) Out-Patient Physical Therapy Visit Information Visit Information Visit Type Treatment Note Visit Start Time 07:34 Visit Stop Time 08:17 Visit Number 3 Number of MORTGAGE CLOSER Visits 2 Progress Note Due 03/08/25 OP-PT Subjective Patient Comments Patient Comments Pt reports was sore after last tx over anterior thighs. Cardio Equipment Bicycle (Upright) Duration (Minutes) 7 Resistance 7 Seat Position 3- with ed proper fit (see self care) Other 28-40 mph, 0.80 miles Gym Equipment Therapeutic Ball 65cm tball Exercise Details Trilaed in PT: pelvic tilts, marching, LAQ Ball Size/Color 65cm tball Body Position seated Comments work on LS and TA engagement/mobility to work toward stability for return to biking Then trialed dynadisc on body solid bench for alternative option. Therapeutic Exercises Other Exercises self massage Side bilateral Equipment Used rolling pin Comments good response decreased quad soreness end tx Quad Stretch Other Exercise Name 1.Modified Sravan with strap knee flexion 2. Prone 3. standing ft on chair Side bilateral Resistance AAROM stretch Equipment Used 1-2 . strap on foot Reps/Minutes 30 sec hold x1 each position Comments cued PPT/TA (prevent LB/HS cramp), slow motion gentle stretch Physical Therapy Assessment Goals Two Impairment impaired balance Short Term Goal (STG patient improves ABC confidence to 85% ) STG Duration 6 weeks One Impairment lack of HEP Short Term Goal (STG patient demonstrates compliance with basic HEP ) STG Duration 6 weeks Assessment Summary Assessment Pt improved tolerance of use of stationary bike for assess comfort no complaints. Progressed seated core progression on tball for corestability to support carryover return to outside bike riding personal goal. Cues for pelvic alignment over tball and trunk over pelvis, improved with understanding postural corrections and TA over tball with support of stationary LE to stabilize self. Pt found good core and challenge wants to continue home, ed have 3 chairs (1 each side and 1 behind for safety and light touch chair . Improved no LOB during tx and better leg elevation hold/slow lift/lower as reps progressed. Pt would benefit from progression balance activities next for better community confidence. Physical Therapy Plan Frequency and Duration Frequency of 2x/Week Treatment Duration of 6 treatment (weeks) Plan of Care Start 02/06/25 Date Plan of Care End 05/09/25 Date Therapeutic Interventions Therapeutic Balance Training,Gait Training,Home Exercise Program, Interventions Neuromuscular Re-education,Patient/Caregiver Education, Self-Care/Home Management,Sensory Integration, Therapeutic Activities,Therapeutic Exercises Modalities Cold Pack/Ice Massage,Hot Packs Next Visit Focus/Plan Next Note Type Treatment Note Next Visit Plan Recheck corner balance HTs in tandem then add SLS, seated core tball activities. POC: Nu step warm up, add shuttle recovery DL and SL, shuttle balance. all for confidence community balance and return to riding outside bike, any suggestions ebike preference by PT next tx. MORTGAGE CLOSER discussed speak to [employer] in town best fit her.
--- NOTE | 2025-02-15 09:13 | PT.OTN ---
Current Diagnoses Type 2 diabetes mellitus without complications (02/15/25) Spasmodic torticollis (02/15/25) Unspecified amblyopia, bilateral (02/15/25) Unspecified abnormalities of gait and mobility (02/15/25) Headache, unspecified (02/15/25) Family history of epilepsy and other diseases of the nervous system (02/15/25) History of falling (02/15/25) Physical Therapy Treatment Note PT OP: Balance, Vestibular, Neuro Start: 02/06/25 07:37 Freq: Status: Active Protocol: Document 02/15/25 09:04 KW (Rec: 02/15/25 09:13 KW Laptop) Out-Patient Physical Therapy Visit Information Visit Information Visit Type Treatment Note Visit Start Time 09:00 Visit Stop Time 09:40 Visit Number 4 Number of MENAGERIE SUPERINTENDENT Visits 2 Progress Note Due 03/08/25 OP-PT Subjective Patient Comments Patient Comments L knee pain, hydration is low - she will work on it for muscle recovery meets with sleep doctor in April met with OT at [facility] for pinched nerve in spine does Reiki every week works on journaling and scrapbooking at home Cardio Equipment Recumbent Elliptical (NuStep) Duration (Minutes) 10 Resistance 2 Seat Position 6 Gym Equipment Shuttle Recovery Unilateral Squat Details tactile cue L>R knee alignment little more lateral midline(creak into flex) Resistance 37# 1 navy bands Reps/Time 10 Bilateral Squats Resistance 50# 2 navy bands (increase next tx) Reps/Time 15 Shuttle Balance Red Details AP ML Therapeutic Ball 65cm tball Exercise Details pelvic tilts, marching, LAQ Ball Size/Color 65cm tball Body Position seated Comments work on LS and TA engagement/mobility to work toward stability for return to biking Then trialed dynadisc on body solid bench for alternative option. Sport Cord 4 way walkouts Exercise Details orange band x [address] Therapeutic Exercises Other Exercises Quad Stretch Equipment Used 1-2 . strap on foot Reps/Minutes 30 sec hold x1 each position Comments cued PPT/TA (prevent LB/HS cramp), slow motion gentle stretch Physical Therapy Assessment Goals Two Impairment impaired balance Short Term Goal (STG patient improves ABC confidence to 85% ) STG Duration 6 weeks One Impairment lack of HEP Short Term Goal (STG patient demonstrates compliance with basic HEP ) STG Duration 6 weeks Assessment Summary Assessment good attitude, participation. Physical Therapy Plan Frequency and Duration Frequency of 2x/Week Treatment Duration of 6 treatment (weeks) Plan of Care Start 02/06/25 Date Plan of Care End 05/09/25 Date Next Visit Focus/Plan Next Note Type Treatment Note
--- NOTE | 2025-02-20 09:47 | PT.OTN ---
Current Diagnoses Type 2 diabetes mellitus without complications (02/20/25) Spasmodic torticollis (02/20/25) Unspecified amblyopia, bilateral (02/20/25) Unspecified abnormalities of gait and mobility (02/20/25) Headache, unspecified (02/20/25) Family history of epilepsy and other diseases of the nervous system (02/20/25) History of falling (02/20/25) Physical Therapy Treatment Note PT OP: Balance, Vestibular, Neuro Start: 02/06/25 07:37 Freq: Status: Active Protocol: Document 02/20/25 09:07 SP (Rec: 02/20/25 09:48 SP [id number]) Out-Patient Physical Therapy Visit Information Visit Information Visit Type Treatment Note Visit Start Time 09:07 Visit Stop Time 09:47 Visit Number 5 Number of HOME ECONOMICS EXTENSION WORKER Visits 3 Progress Note Due 03/08/25 OP-PT Subjective Patient Comments Patient Comments Pt report would like to education on trek poles for uneven surfaces. Gait Training Gait Activity Trek poles Device Used Unilateral vs Bilateral Treatment Focus posture, decrease neck and shoulder discomfort during hiking, proper sequen Comments extensive cues for proper sequence 2 pt gait: 1. use walking behind HOME ECONOMICS EXTENSION WORKER/pt trail UE swing with opp LE patterning 2. follow HOME ECONOMICS EXTENSION WORKER demo 3. use video pt personal phone with cues for only 1 trek pole advances at time 4. Next use metronome Improvement but a challenge, needs continue work in pt for proper pattern. Self-Care/Home Management Treatment Education Patient Education Body Mechanics,Joint Protection,Pain Management,Posture ,Safety Other Education cues elongated posture, TA, little increased NAHID, proper patterning trek poles for safety 2pt gait, CS retracted neutral for support posture for hiking trails . Could continue education for return to hiking. Physical Therapy Assessment Goals Two Impairment impaired balance Short Term Goal (STG patient improves ABC confidence to 85% ) STG Duration 6 weeks One Impairment lack of HEP Short Term Goal (STG patient demonstrates compliance with basic HEP ) STG Duration 6 weeks Assessment Summary Assessment Pt improved sequencing use of persona phone video for improvement use gait trek poles for return to hike and proper posture CS alignement for decreased neck and upper back discomfort. WOuld beneift continued ed. ALso strengthening CS with TB. Physical Therapy Plan Frequency and Duration Frequency of 2x/Week Treatment Duration of 6 treatment (weeks) Plan of Care Start 02/06/25 Date Plan of Care End 05/09/25 Date Therapeutic Interventions Therapeutic Balance Training,Gait Training,Home Exercise Program, Interventions Neuromuscular Re-education,Patient/Caregiver Education, Self-Care/Home Management,Sensory Integration, Therapeutic Activities,Therapeutic Exercises Modalities Cold Pack/Ice Massage,Hot Packs Next Visit Focus/Plan Next Note Type Treatment Note Next Visit Plan Continue ed trek poles, CS and posture ed for return to trial hiking. POC: Nu step warm up, add shuttle recovery DL and SL, shuttle balance. all for confidence community balance and return to riding outside bike, any suggestions ebike preference by PT next tx. HOME ECONOMICS EXTENSION WORKER discussed speak to [employer] in town best fit her.
--- NOTE | 2025-02-22 08:25 | PT.OTN ---
Current Diagnoses Type 2 diabetes mellitus without complications (02/22/25) Spasmodic torticollis (02/22/25) Unspecified amblyopia, bilateral (02/22/25) Unspecified abnormalities of gait and mobility (02/22/25) Headache, unspecified (02/22/25) Family history of epilepsy and other diseases of the nervous system (02/22/25) History of falling (02/22/25) Physical Therapy Treatment Note PT OP: Balance, Vestibular, Neuro Start: 02/06/25 07:37 Freq: Status: Active Protocol: Document 02/22/25 08:19 KW (Rec: 02/22/25 08:24 KW Laptop) Out-Patient Physical Therapy Visit Information Visit Information Visit Type Treatment Note Visit Start Time 08:15 Visit Stop Time 09:00 Visit Number 6 Number of EXPLOSIVES MIXER OPERATOR Visits 3 Progress Note Due 03/08/25 Precautions Precautions none OP-PT Subjective Patient Comments Patient Comments pinched nerve in back is acting up she notes in her medical record that there is a diagnosis of epilepsy, this diagnosis has never been confirmed with her. She will discuss with neurologist and request medical record change. Cardio Equipment Recumbent Elliptical (NuStep) Duration (Minutes) 10 Resistance 2 Seat Position 6 Gym Equipment Shuttle Recovery Unilateral Squat Resistance 37# 1 navy bands Reps/Time 10 Bilateral Squats Resistance 50# 2 navy bands (increase next tx) Reps/Time 15 Shuttle Balance Red Details AP ML Therapeutic Ball 65cm tball Exercise Details pelvic tilts, marching, LAQ Ball Size/Color 65cm tball Body Position seated Comments work on LS and TA engagement/mobility to work toward stability for return to biking Then trialed dynadisc on body solid bench for alternative option. Sport Cord 4 way walkouts Exercise Details orange band x [address] Therapeutic Exercises Other Exercises self massage Side bilateral Equipment Used rolling pin Comments good response decreased quad soreness end tx Quad Stretch Equipment Used 1-2 . strap on foot Reps/Minutes 30 sec hold x1 each position Comments cued PPT/TA (prevent LB/HS cramp), slow motion gentle stretch Physical Therapy Assessment Goals Two Impairment impaired balance Short Term Goal (STG patient improves ABC confidence to 85% ) STG Duration 6 weeks One Impairment lack of HEP Short Term Goal (STG patient demonstrates compliance with basic HEP ) STG Duration 6 weeks Assessment Summary Assessment encouragement given for participation, compliance Physical Therapy Plan Frequency and Duration Frequency of 2x/Week Treatment Duration of 6 treatment (weeks) Plan of Care Start 02/06/25 Date Plan of Care End 05/09/25 Date Next Visit Focus/Plan Next Note Type Treatment Note Next Visit Plan continues to accept challenges of each PT visit - encouragement given
--- NOTE | 2025-02-27 08:16 | PT.OTN ---
Current Diagnoses Type 2 diabetes mellitus without complications (03/01/25) Spasmodic torticollis (03/01/25) Unspecified amblyopia, bilateral (03/01/25) Unspecified abnormalities of gait and mobility (03/01/25) Headache, unspecified (03/01/25) Family history of epilepsy and other diseases of the nervous system (03/01/25) History of falling (03/01/25) Physical Therapy Treatment Note PT OP: Balance, Vestibular, Neuro Start: 02/06/25 07:37 Freq: Status: Active Protocol: Document 02/27/25 07:34 SP (Rec: 02/27/25 08:17 SP [id number]) Out-Patient Physical Therapy Visit Information Visit Information Visit Type Treatment Note Visit Start Time 07:34 Visit Stop Time 08:16 Visit Number 7 Number of UMBRELLA FINISHER Visits 4 Progress Note Due 03/08/25 Precautions Precautions none OP-PT Subjective Patient Comments Patient Comments Was little sore after last tx doing ROM stretches haven 't moved in a while but ok. She went Neurologist and stated can stop PT if wants. He did lots tests and 1 came back + SRR. Is being referred to Inpatient Care Manager Rn. Cardio Equipment Upper Body Ergometer (UBE) Duration (Minutes) 4 RPM 120 Height 2.5 Gym Equipment Shuttle Recovery Unilateral Squat Details cued glut engagement, TKE but not lock out knee /c good alignment, /c TA Resistance 37# 1 navy bands Reps/Time 10 Bilateral Squats Details cued arch to heel press improved glut & quad, PPT /c TA Resistance 50# 2 navy bands (increase next tx?) Reps/Time 20 Therapeutic Ball 65cm tball Exercise Details pelvic tilts, marching, LAQ Ball Size/Color 65cm tball Body Position seated Comments cued slow pacing, trunk still Sport Cord 4 way walkouts Exercise Details f/b/lat/step up/back down (fwd/lat) Cord/Resistance orange Reps/Duration 10 each direction Comments cued slow pacing control Neuro Re-Education Treatment Balance Activities Uneven STS Comments STS foam under feet and arms across body Physical Therapy Assessment Goals Two Impairment impaired balance Short Term Goal (STG patient improves ABC confidence to 85% ) STG Duration 6 weeks One Impairment lack of HEP Short Term Goal (STG patient demonstrates compliance with basic HEP ) STG Duration 6 weeks Assessment Summary Assessment Pt responded well with cuing for postural corections to facilitate core then progression unsteady STS for functional strengthening and balance component. She would benefit from continued uneven gait for return to trails. Physical Therapy Plan Frequency and Duration Frequency of 2x/Week Treatment Duration of 6 treatment (weeks) Plan of Care Start 02/06/25 Date Plan of Care End 05/09/25 Date Therapeutic Interventions Therapeutic Balance Training,Gait Training,Home Exercise Program, Interventions Neuromuscular Re-education,Patient/Caregiver Education, Self-Care/Home Management,Sensory Integration, Therapeutic Activities,Therapeutic Exercises Modalities Cold Pack/Ice Massage,Hot Packs Next Visit Focus/Plan Next Note Type Treatment Note Next Visit Plan Continue to accept challenges of each PT visit - encouragement given for return to community trail hikes .
--- NOTE | 2025-03-01 08:18 | PT.OTN ---
Current Diagnoses Type 2 diabetes mellitus without complications (03/01/25) Spasmodic torticollis (03/01/25) Unspecified amblyopia, bilateral (03/01/25) Unspecified abnormalities of gait and mobility (03/01/25) Headache, unspecified (03/01/25) Family history of epilepsy and other diseases of the nervous system (03/01/25) History of falling (03/01/25) Physical Therapy Treatment Note PT OP: Balance, Vestibular, Neuro Start: 02/06/25 07:37 Freq: Status: Active Protocol: Document 03/01/25 07:32 SP (Rec: 03/01/25 08:20 SP [id number]) Out-Patient Physical Therapy Visit Information Visit Information Visit Type Treatment Note Visit Start Time 07:32 Visit Stop Time 08:18 Visit Number 8 Number of 3RD GRADE TEACHER Visits 5 Progress Note Due 03/08/25 Precautions Precautions none OP-PT Subjective Patient Comments Patient Comments Pt reports is doing better, walking [place] and found low level uneven trails behind high school to walk, son walked the dog. Cardio Equipment Recumbent Stepper (Sci-Fit) Duration (Minutes) 11 Resistance 3 Other BLEs Gym Equipment Shuttle Recovery Unilateral Squat Details cued glut engagement, TKE but not lock out knee /c good alignment, /c TA Resistance 37# 1 navy bands Reps/Time 10 Bilateral Squats Details cued arch to heel press improved glut & quad, PPT /c TA Resistance 62# 2 navy bands Reps/Time 15-20 Therapeutic Exercises Sitting Exercises Cervical AROM Comments cued tall posture, neutral spine, gentle slow AROM, then carryover walk Gait Training Gait Activity Trek poles Device Used Bilateral Distance/Duration 30 ft x2 pre uneven surface today Treatment Focus posture, decrease neck and shoulder discomfort during hiking, proper sequen Comments Continued Mod cues for proper sequence 2 pt gait, improvement from previous tx. Neuro Re-Education Treatment Balance Activities uneven obstacle course Details forward and lateral Surface mat over: pods, stones, discs, foam roller Equipment with/without trek poles Reps/Duration 3 laps total Comments improved stability and sequencing with Neftali trek poles CG-5%A with cues for COG over each step with posture and core fac. Uneven STS Equipment mesh chair, arsm across chest, feet on foam Reps/Duration 10 reps Comments STS foam under feet and arms across body Self-Care/Home Management Treatment Education Patient Education Body Mechanics,Posture,Safety Other Education Education on Fall Prevention Group [employer] Class for after PT strength and balance progression. Gave HO for class contact and info what is all about. Pt stated very interested and will call and put self on waiting list for Jun/Jul. Physical Therapy Assessment Goals Two Impairment impaired balance Short Term Goal (STG patient improves ABC confidence to 85% ) STG Duration 6 weeks One Impairment lack of HEP Short Term Goal (STG patient demonstrates compliance with basic HEP ) STG Duration 6 weeks Assessment Summary Assessment Pt demonstrating improvement in core and postural corrections with cuing during progression uneven surface balance activities and continued gait use trek poles for return to trail hiking safety. She feels more confident and incorporating low level uneven surface trails in town but wanted more challenge today. She would benefit from trial shuttle balance and recovery next tx. She improved proper use neftali trek poles for stability on more uneven surfaces. Physical Therapy Plan Frequency and Duration Frequency of 2x/Week Treatment Duration of 6 treatment (weeks) Plan of Care Start 02/06/25 Date Plan of Care End 05/09/25 Date Therapeutic Interventions Therapeutic Balance Training,Gait Training,Home Exercise Program, Interventions Neuromuscular Re-education,Patient/Caregiver Education, Self-Care/Home Management,Sensory Integration, Therapeutic Activities,Therapeutic Exercises Modalities Cold Pack/Ice Massage,Hot Packs Next Visit Focus/Plan Next Note Type Treatment Note Next Visit Plan Continue to accept challenges of each PT visit - encouragement given for return to community trail [employer] . Next trial SHuttle recovery and balance for more dynamic trail hikes balance recovery and continued use Neftali trek poles.
--- NOTE | 2025-03-05 09:08 | PT.OTN ---
Current Diagnoses Type 2 diabetes mellitus without complications (03/05/25) Spasmodic torticollis (03/05/25) Unspecified amblyopia, bilateral (03/05/25) Unspecified abnormalities of gait and mobility (03/05/25) Headache, unspecified (03/05/25) Family history of epilepsy and other diseases of the nervous system (03/05/25) History of falling (03/05/25) Physical Therapy Treatment Note PT OP: Balance, Vestibular, Neuro Start: 02/06/25 07:37 Freq: Status: Active Protocol: Document 03/05/25 08:25 SP (Rec: 03/05/25 09:09 SP [id number]) Out-Patient Physical Therapy Visit Information Visit Information Visit Type Treatment Note Visit Start Time 08:25 Visit Stop Time 09:08 Visit Number 9 Number of AUTOMOBILE TRAVEL CLUB COUNSELOR Visits 6 Progress Note Due 03/08/25 Precautions Precautions none OP-PT Subjective Patient Comments Patient Comments Pt reports still having headaches and pinch nerve drama in low back daily. When gets going, mobile LB starts up, takes Tylenol or stronger if needed and not going anywhere, also lays down can help. Today stopped at walk in clinic and thinks has a UTI and will stop after tx today. She has been doing some walking and walked here from home. Therapeutic Exercises Supine Exercises SL Bridge Supine Exercise Name added to HEP with HO Side bilateral Resistance AROM, opp LE 90/90 Reps/Minutes 10 each side Comments cued TA, neutral pelvis Core Series Supine Exercise Name LTR, KTC, bridge- added to HEP- discussed getting 1 for home Equipment Used LEs over 55cm tball Reps/Minutes 10 reps each side Comments cued slow oblique LRT, Sitting Exercises Cervical AROM Sitting Exercise added post manual Name Side bilateral Reps/Minutes 10 reps Comments cued tall posture, neutral spine, gentle slow AROM, then carryover walk Manual Therapy Treatment Consent Patient gave verbal Yes consent for manual treatment Soft Tissue Mobilization head Body Location temporalis, around eye socket, nose Comments STMs and ed self application neck Body Location UT, SCM, suboccipital, SOR Comments gentle STMs and manual ed self use theracane, MWM head nods/turns Physical Therapy Assessment Goals Two Impairment impaired balance Short Term Goal (STG patient improves ABC confidence to 85% ) STG Duration 6 weeks One Impairment lack of HEP Short Term Goal (STG patient demonstrates compliance with basic HEP ) STG Duration 6 weeks Assessment Summary Assessment Pt reported manual today eliminated her headache, education on self application. Incorporated core series TA with proper low back alignment use therapy ball today and Single leg bridge improved level pelvis with better abdominal engagement, cued for glut engagment good tiring response to support strengthening for return to hiking. Physical Therapy Plan Frequency and Duration Frequency of 2x/Week Treatment Duration of 6 treatment (weeks) Plan of Care Start 02/06/25 Date Plan of Care End 05/09/25 Date Therapeutic Interventions Therapeutic Balance Training,Gait Training,Home Exercise Program, Interventions Neuromuscular Re-education,Patient/Caregiver Education, Self-Care/Home Management,Sensory Integration, Therapeutic Activities,Therapeutic Exercises Modalities Cold Pack/Ice Massage,Hot Packs Next Visit Focus/Plan Next Note Type Treatment Note Next Visit Plan Next trial SHuttle recovery and balance for more dynamic trail hikes balance recovery and continued use Neftali trek poles. recheck core and glut supine HEP as needed. POC: Continue to accept challenges of each PT visit - encouragement given for return to community trail [employer] .
--- NOTE | 2025-03-08 08:18 | PT.OTN ---
Current Diagnoses Type 2 diabetes mellitus without complications (03/08/25) Spasmodic torticollis (03/08/25) Unspecified amblyopia, bilateral (03/08/25) Unspecified abnormalities of gait and mobility (03/08/25) Headache, unspecified (03/08/25) Family history of epilepsy and other diseases of the nervous system (03/08/25) History of falling (03/08/25) Physical Therapy Treatment Note PT OP: Balance, Vestibular, Neuro Start: 02/06/25 07:37 Freq: Status: Active Protocol: Document 03/08/25 07:40 SP (Rec: 03/08/25 08:20 SP [id number]) Out-Patient Physical Therapy Visit Information Visit Information Visit Type Treatment Note Visit Start Time 07:40 Visit Stop Time 08:18 Visit Number 10 Number of CAPACITOR REPAIRER Visits 7 Progress Note Due 03/08/25 Precautions Precautions none OP-PT Subjective Patient Comments Patient Comments Pt report need tips for walking her dog that babysit for family member. She reports the manual on her neck was very helpful and less headaches noted. Her neck stiff/sore at arrival today and requested little time relaxing and wants to continue balance progression. Is walking to PT and around more mindful of posture, heel toe for better balance. Therapeutic Exercises Sitting Exercises Paloff Press Sitting Exercise added to HEP with HO Name Side bilateral Resistance TB #2 orange (teal green home) Reps/Minutes 10 reps each side (3x/wk) Resisted Shoulder Extension Sitting Exercise added to HEP with HO Name Side bilateral Resistance TB #2 orange (teal green home) Reps/Minutes 2 SH x10 each, (3x/wk) Comments cued CS retraction neutral, scap retraction neutral, TA - support walk dog Cervical AROM Sitting Exercise reviewed Name Side bilateral Reps/Minutes 10 reps Comments cued tall posture, neutral spine, gentle slow AROM, then carryover walk Manual Therapy Treatment Consent Patient gave verbal Yes consent for manual treatment Soft Tissue Mobilization head Body Location Neftali: frontalis, temporalis, around eye socket, nose Mobilization Type Myofascial Release,Rolling,Sustained Pressure Comments Craniosacral therapy, scalp scub and MFglides with continued ed self application neck Body Location Neftali: UT, SCM, suboccipital, SOR Mobilization Type Rolling,Sustained Pressure Comments gentle STMs Self-Care/Home Management Treatment Education Patient Education Body Mechanics,Posture,Safety Other Education Education during dog walks of self correction awareness elongated posture (head up over trunk midline), core and scapular complex engagement and mindful of dog pulls multidirectional and need be sure upper body and core prepared. SUggested to sign up for dog training classes so dog doesn't pull on her as well. CAPACITOR REPAIRER didn't have suggestion where to find someone that does this training, heard someone in [facility] is good. Physical Therapy Assessment Goals Two Impairment impaired balance Short Term Goal (STG patient improves ABC confidence to 85% ) STG Duration 6 weeks One Impairment lack of HEP Short Term Goal (STG patient demonstrates compliance with basic HEP ) STG Duration 6 weeks Assessment Summary Assessment Pt responded well to manual neck and head no headache with more relaxed rotation motion, continued verbal education during manual how to do self discussed in previous tx. She states challenge keeping balanced and hold dog on walks. Provided tips and added resisted scapular and core strengthening HEP today for trunk bracing support while walking her family's dog. Pt reports feels more supported during ther ex today. Physical Therapy Plan Frequency and Duration Frequency of 2x/Week Treatment Duration of 6 treatment (weeks) Plan of Care Start 02/06/25 Date Plan of Care End 05/09/25 Date Therapeutic Interventions Therapeutic Balance Training,Gait Training,Home Exercise Program, Interventions Neuromuscular Re-education,Patient/Caregiver Education, Self-Care/Home Management,Sensory Integration, Therapeutic Activities,Therapeutic Exercises Modalities Cold Pack/Ice Massage,Hot Packs Next Visit Focus/Plan Next Note Type Treatment Note Next Visit Plan Pt has 2 more txs and think will be ready to DC to own HEP. Next put together HEP and how relates to walking dog, hiking uneven trails, etc. Trial SHuttle recovery and balance for more dynamic trail hikes balance recovery and continued educate proper sequencing Neftali trek poles for bal support as needed. POC: Continue to accept challenges of each PT visit, has been given [place] class at , [facility] and jonas golden at the [employer] [facility].
--- NOTE | 2025-03-13 07:48 | PT.OTN ---
Current Diagnoses Type 2 diabetes mellitus without complications (03/13/25) Spasmodic torticollis (03/13/25) Unspecified amblyopia, bilateral (03/13/25) Unspecified abnormalities of gait and mobility (03/13/25) Headache, unspecified (03/13/25) Family history of epilepsy and other diseases of the nervous system (03/13/25) History of falling (03/13/25) Physical Therapy Treatment Note PT OP: Balance, Vestibular, Neuro Start: 02/06/25 07:37 Freq: Status: Active Protocol: Document 03/13/25 07:38 KW (Rec: 03/13/25 07:48 KW Laptop) Out-Patient Physical Therapy Visit Information Visit Information Visit Type Progress Note Visit Start Time 07:30 Visit Stop Time 08:10 Visit Number 11 Number of RADIATION THERAPY TECHNOLOGIST Visits 8 Progress Note Due 04/12/25 Precautions Precautions none OP-PT Subjective Patient Comments Patient Comments Dr Wallace today for pinched nerve is just recovering from a UTI OT for Kumar therapy for pinched nerve in mid back is waiting to see a new sleep doc in [facility] exercising: a lot of walking blood sugars are within range 103 in am Aic 6.3 up from 5.9 is being referred to rheumatology with increased SSA OP Gait Assessment Gait Gait Assistance Independent Required: Comments Gait Comments minimal arm swing, slower irving Sensation Evaluation Gross Sensation Gross Sensation WNL Posture Evaluation Comments Posture Comments wide NAHID, petite in sitting feet do not hit floor with standard chair head tilted Right mouth breathing Cardio Equipment Recumbent Stepper (Sci-Fit) Duration (Minutes) 5 Resistance 3 Other BLEs Gym Equipment Shuttle Recovery Unilateral Squat Details cued glut engagement, TKE but not lock out knee /c good alignment, /c TA Resistance 37# 1 navy bands Reps/Time 10 Bilateral Squats Details cued arch to heel press improved glut & quad, PPT /c TA Resistance 62# 2 navy bands Reps/Time 15-20 Shuttle Balance Red Details AP ML Therapeutic Ball 65cm tball Exercise Details pelvic tilts, marching, LAQ Ball Size/Color 65cm tball Body Position seated Comments cued slow pacing, trunk still Sport Cord 4 way walkouts Exercise Details f/b/lat/step up/back down (fwd/lat) Cord/Resistance orange Reps/Duration 10 each direction Comments cued slow pacing control Therapeutic Exercises Supine Exercises SL Bridge Supine Exercise Name added to HEP with HO Side bilateral Resistance AROM, opp LE 90/90 Reps/Minutes 10 each side Comments cued TA, neutral pelvis Core Series Supine Exercise Name LTR, KTC, bridge- added to HEP- discussed getting 1 for home Equipment Used LEs over 55cm tball Reps/Minutes 10 reps each side Comments cued slow oblique LRT, Sitting Exercises Paloff Press Side bilateral Resistance TB #2 orange (teal green home) Reps/Minutes 10 reps each side (3x/wk) Resisted Shoulder Extension Side bilateral Resistance TB #2 orange (teal green home) Reps/Minutes 2 SH x10 each, (3x/wk) Comments cued CS retraction neutral, scap retraction neutral, TA - support walk dog Cervical AROM Sitting Exercise reviewed Name Side bilateral Reps/Minutes 10 reps Comments cued tall posture, neutral spine, gentle slow AROM, then carryover walk Other Exercises self massage Side bilateral Equipment Used rolling pin Comments good response decreased quad soreness end tx Quad Stretch Equipment Used 1-2 . strap on foot Reps/Minutes 30 sec hold x1 each position Comments cued PPT/TA (prevent LB/HS cramp), slow motion gentle stretch Neuro Re-Education Treatment Balance Activities uneven obstacle course Details forward and lateral Surface mat over: pods, stones, discs, foam roller Equipment with/without trek poles Reps/Duration 3 laps total Comments improved stability and sequencing with Neftali trek poles CG-5%A with cues for COG over each step with posture and core fac. Uneven STS Equipment mesh chair, arsm across chest, feet on foam Reps/Duration 10 reps Comments STS foam under feet and arms across body standing corner Details REviewed standing corner static progression: tandem today Equipment corner at back and chair front Comments HTs cued tall, rhomboid, core Movement Re-Education Movement Re- head alignment education Activities Physical Therapy Assessment Rehab Potential Rehabilitation Fair Potential Evaluation Complexity Number of Personal 1-2 Factors/ Comorbidities Number of Body 3 Systems Impaired Impairments Impairments Activity Tolerance,Balance,Functional Activities, Functional Mobility,Gait,Pain,Posture,Strength Other Concerns Fall Risk yes Barriers to co-morbidities Rehabilitation sedentary Goals Two Impairment impaired balance Short Term Goal (STG patient improves ABC confidence to 85% ) STG Duration 6 weeks One Impairment lack of HEP Short Term Goal (STG patient demonstrates compliance with basic HEP ) STG Duration 6 weeks Progress Towards Goals Progress Towards Progressing Toward Goals Goals Physical Therapy Plan Frequency and Duration Frequency of 2x/Week Treatment Duration of 6 treatment (weeks) Plan of Care Start 02/06/25 Date Plan of Care End 05/09/25 Date Next Visit Focus/Plan Next Note Type Discharge Summary Next Visit Plan will DC To HEP
--- NOTE | 2025-03-15 07:49 | PT.OPDS ---
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 Address: [address] [place], [address] Email: [email or web address] [email or web address] Attending Provider Non-Staff Referring Provider Specialty: Psychiatry Address: [address] [place], [address] Email: Visit Number Visit Number 12 Discharge Summary PT OP: Balance, Vestibular, Neuro Start: 02/06/25 07:37 Freq: Status: Active Protocol: Document 03/15/25 07:38 KW (Rec: 03/15/25 07:49 KW Laptop) Out-Patient Physical Therapy Visit Information Visit Information Visit Type Discharge Summary Visit Start Time 07:30 Visit Stop Time 08:10 Visit Number 12 Precautions Precautions none OP-PT Subjective Patient Comments Patient Comments yes, is aware that she stands and walks with her head tilted to the right. She reports this has been an issue since she was a child, even recalls childhood photos when the beer still runner compounder would try to correct her head tilt contacted [facility] program - on wait list was able to get out of low lawn chairs at concert last night. Cardio Equipment Recumbent Elliptical (NuStep) Duration (Minutes) 10 Resistance 2 Seat Position 6 Gym Equipment Shuttle Recovery Unilateral Squat Details cued glut engagement, TKE but not lock out knee /c good alignment, /c TA Resistance 37# 1 navy bands Reps/Time 10 Bilateral Squats Details cued arch to heel press improved glut & quad, PPT /c TA Resistance 62# 2 navy bands Reps/Time 15-[address] Exercise Details f/b/lat/step up/back down (fwd/lat) Cord/Resistance orange Reps/Duration 10 each direction Comments cued slow pacing control Therapeutic Exercises Supine Exercises SL Bridge Supine Exercise Name added to HEP with HO Side bilateral Resistance AROM, opp LE 90/90 Reps/Minutes 10 each side Comments cued TA, neutral pelvis Core Series Supine Exercise Name LTR, KTC, bridge- added to HEP- discussed getting 1 for home Equipment Used LEs over 55cm tball Reps/Minutes 10 reps each side Comments cued slow oblique LRT, Sitting Exercises Paloff Press Side bilateral Resistance TB #2 orange (teal green home) Reps/Minutes 10 reps each side (3x/wk) Resisted Shoulder Extension Side bilateral Resistance TB #2 orange (teal green home) Reps/Minutes 2 SH x10 each, (3x/wk) Comments cued CS retraction neutral, scap retraction neutral, TA - support walk dog Cervical AROM Sitting Exercise reviewed Name Side bilateral Reps/Minutes 10 reps Comments cued tall posture, neutral spine, gentle slow AROM, then carryover walk Other Exercises self massage Side bilateral Equipment Used rolling pin Comments good response decreased quad soreness end tx Quad Stretch Equipment Used 1-2 . strap on foot Reps/Minutes 30 sec hold x1 each position Comments cued PPT/TA (prevent LB/HS cramp), slow motion gentle stretch Physical Therapy Assessment Goals Two Impairment impaired balance Short Term Goal (STG patient improves ABC confidence to 85% - improving. ) will go to community based balance class STG Duration 6 weeks One Impairment lack of HEP Short Term Goal (STG patient demonstrates compliance with basic HEP - MET ) STG Duration 6 weeks Assessment Summary Assessment excellent start to a wellness based exercise program, balance program. She was pleased she had increased strength to get up and off of the ground at a concert last night. goals met appropriate for DC to HEP/community based programs. Physical Therapy Plan Discharge Physical Therapy Discharge Reasons Goals Met
== END 2025-03-19 08:50 | disposition home or self-care (01) ==
LOC: PHYS 07:30
PROVIDERS: Family Provider Family Medicine; PCP Family Medicine; Referring Provider Psychiatry & Neurology Neurology; Visit Provider Psychiatry & Neurology Neurology
DX: R51.9 Headache, unspecified (principal); Z82.0 Family history of epilepsy and other diseases of the nervous system; E11.9 Type 2 diabetes mellitus without complications; Z91.81 History of falling; G24.3 Spasmodic torticollis; H53.003 Unspecified amblyopia, bilateral; R26.9 Unspecified abnormalities of gait and mobility
CPT/HCPCS: 97110; 97112; 97116; 97140; 97162; 97535

== ENCOUNTER → 2025-04-29 07:49 | Outpatient (CLI) | payer MEDICARE, BC, SELFPAY ==
--- NOTE | 2025-04-29 07:51 | DI.MG.S_ITS ---
MM screening mammo implant BI: 04/29/2025. BI-RADS: 0 CLINICAL: 64-year old female for bilateral screening mammogram. Tyrer-Cuzick lifetime risk of 7.7%. No personal or first-degree family history of breast cancer. The patient has bilateral implants. PRIOR EXAMS: 04/28/2024, 02/22/2024, 09/16/2023, 09/09/2023, 03/12/2023, 03/28/2021, 02/13/2019. MAMMOGRAPHY TECHNIQUE: 2D and 3D (tomosynthesis) digital mammographic views obtained, with additional images as needed for full coverage. Current study was also evaluated with a Computer Aided Detection (CAD) system. DENSITY D. The breasts are extremely dense, which lowers the sensitivity of mammography. IMPLANTS Right: Breast implant present on the right. Left: Breast implant present on the left. MAMMOGRAPHY FINDINGS Right: CC only, Outer, Middle depth: Asymmetry needing additional imaging evaluation. Left: No suspicious mass, asymmetry, microcalcification, or other abnormality seen. IMPRESSION: Right (Asymmetry): CC only, Outer, Middle depth * Incomplete - asymmetry needing additional imaging evaluation. Left * No evidence of malignancy. RECOMMENDATIONS Right: CC only, Outer, Middle depth * Further evaluation with diagnostic mammography and diagnostic ultrasound. Ultrasound to be performed only if needed. OVERALL ASSESSMENT CATEGORY BI-RADS-0: Incomplete - Need Additional Imaging Evaluation. ELECTRONICALLY SIGNED: Taylor Rodriguez M.D. on 04/30/2025 at 08:30:12 AM PT Interpreting Station ID: [id number]
== END ==
LOC: MAMMO 07:50
PROVIDERS: PCP Family Medicine; Referring Provider Family Medicine; Visit Provider Family Medicine
DX: Z12.31 Encounter for screening mammogram for malignant neoplasm of breast (principal); R92.343 Mammographic extreme density, bilateral breasts; Z98.82 Breast implant status
CPT/HCPCS: 77063; 77067

== ENCOUNTER → 2025-06-05 13:30 | Outpatient (CLI) | payer MEDICARE, BC, SELFPAY ==
--- NOTE | 2025-06-05 13:31 | DI.MG.S_ITS ---
MM diagnostic mammo implant RT, US breast RT limited: 06/05/2025 BI-RADS: 1 CLINICAL: 65-year old female for right diagnostic mammogram and right diagnostic breast ultrasound that is a recall from screening on 04/29/2025. Tyrer-Cuzick lifetime risk of 7.3%. No personal or first-degree family history of breast cancer. The patient has bilateral implants. PRIOR EXAMS Mammogram(s): 04/29/2025, 04/28/2024, 09/09/2023, 03/12/2023, 03/28/2021, 02/13/2019. MAMMOGRAPHY TECHNIQUE: 2D and 3D (tomosynthesis) digital mammographic views obtained, with additional images as needed for full coverage. Current study was also evaluated with a Computer Aided Detection (CAD) system. ULTRASOUND TECHNIQUE Real-time shipley scale imaging of the area of clinical interest was performed with image documentation. TARGETED Right Breast Ultrasound: Real-time ultrasound exam was performed focused to area of clinical and/or imaging concern. DENSITY Right: D. The breast is extremely dense, which lowers the sensitivity of mammography. IMPLANTS Right: Breast implant present on the right. MAMMOGRAPHY FINDINGS Right: CC only, Outer: The asymmetry seen on recent screening mammogram did not persist with additional imaging and is consistent with superimposition of normal breast tissue. ULTRASOUND FINDINGS Right: The area from 7 to 11 o'clock, 10 cm from the nipple was scanned. There is no sonographic correlate for the area of concern on mammogram. No suspicious sonographic finding present. IMPRESSION: Right * No evidence of malignancy. RECOMMENDATIONS Bilateral * Annual screening mammography. COMMENTS: Findings and recommendations were conveyed to the patient during today's evaluation. OVERALL ASSESSMENT CATEGORY BI-RADS-1: Negative. [employer] recommends annual screening mammography beginning at age 40 for women with average risk of breast cancer. ELECTRONICALLY SIGNED: Taylor Rodriguez M.D. on 06/05/2025 at 02:55:38 PM PT Interpreting Station ID: [id number]
== END ==
LOC: MAMMO 13:30
PROVIDERS: PCP Family Medicine; Referring Provider Family Medicine; Visit Provider Family Medicine
DX: R92.8 Other abnormal and inconclusive findings on diagnostic imaging of breast (principal); R92.341 Mammographic extreme density, right breast; N64.89 Other specified disorders of breast; Z98.82 Breast implant status
CPT/HCPCS: 76642; 77065; G0279